=== PATIENT | male | born 1960 | race African-American/Black ===

== ENCOUNTER 2018-09-06 16:40 | Emergency (ER) | payer OTHER ==
[~2018-09-06] VITALS: Ht 167.6 cm; Wt 59.4 kg
[2018-09-06 16:47] VITALS: BP_SYST 114
--- NOTE | 2018-09-06 16:47 | NUR ---
Patient to [facility] for evaluation. Side rails up. Report given to MADISON Quinonez
--- NOTE | 2018-09-06 16:50 | NUR ---
Patient brought in via BLS transport from evaluation of mass to right lip. Patient has history for CRE, CVA with left hemiplegia. Patient arrives with baseline of AO x1. Pain 0/10. No other complaints/injuries per patient or as noted. Will continue to monitor.
--- NOTE | 2018-09-06 17:01 | NUR ---
ER at bedside examining patient.
--- NOTE | 2018-09-06 17:43 | NUR ---
Called report to Yesenia WALLACE at [facility]. Patient will be transported via BLS.
== END 2018-09-06 17:51 | disposition home or self-care (01) ==
LOC: SED 16:40
DX: K13.79 Other lesions of oral mucosa (principal)
CPT/HCPCS: 99283

== ENCOUNTER 2019-02-20 15:27 | Inpatient (IN) | payer OTHER, MEDICAID ==
[~2019-02-20] VITALS: Ht 182.9 cm; Wt 65.8 kg
--- NOTE | 2019-02-20 15:32 | NUR ---
Patient to ER bed 1 to gown for evaluation. Side rails up.
--- NOTE | 2019-02-20 15:35 | NUR ---
ER Dr. Concepcion at bedside examining patient.
[2019-02-20 15:40] VITALS: BP_SYST 139
--- NOTE | 2019-02-20 15:40 | NUR ---
Patient is awake and alert, visually tracks, and non-verbal. Patient was sent in by Christian Paulino s/p pulling g-tube out. Patient does not appear in any distress at this time.
[2019-02-20] MEDS ORDERED: CLINDAMYCIN 600 mg/50mL D5W 50 ML IV ONE (16:00)
[2019-02-20] MEDS ORDERED: cefTRIAXone 1 GM IVPB PREMIX 50 ML IV ONE (16:00)
[2019-02-20] MEDS ORDERED: NACL 0.9% 1,000 ML IV ONE (16:00)
--- NOTE | 2019-02-20 16:18 | NUR ---
Medication reconciliation completed with information provided by facility. Any prior medication reconciliation on file was reviewed and corrected.
[2019-02-20] MEDS ORDERED: AMLO5TAB4 GT (16:19)
[2019-02-20] MEDS ORDERED: HYDR-4272 PO (16:19)
[2019-02-20] MEDS ORDERED: BISA-79 GT (16:19)
[2019-02-20] MEDS ORDERED: LEVE1000 GT (16:19)
[2019-02-20] MEDS ORDERED: MOM PO (16:19)
[2019-02-20] MEDS ORDERED: HYDR-4272 GT (16:19)
[2019-02-20] MEDS ORDERED: THIA100T73 GT (16:19)
[2019-02-20] MEDS ORDERED: QUET50TA GT (16:19)
[2019-02-20] MEDS ORDERED: SENN8.6T19 GT (16:19)
[2019-02-20] MEDS ORDERED: FOLI-43 GT (16:19)
[2019-02-20] MEDS ORDERED: RIVA10TA GT (16:19)
[2019-02-20] MEDS ORDERED: FLEETMO RC (16:19)
[2019-02-20] MEDS ORDERED: IPRA3AMP9 INH ×2 (16:19)
[2019-02-20] MEDS ORDERED: PROP10TA10 GT (16:19)
[2019-02-20 16:41] LABS: BASOPHILS # (AUTO) 0.1 K/uL (0.0-0.2); BASOPHILS % (AUTO) 0.8 % (0.0-2.0); EOSINOPHILS # (AUTO) 0.2 K/uL (0.0-0.4); EOSINOPHILS % (AUTO) 2.3 % (0.0-4.0); HEMATOCRIT 36.1 % (36-54); LYMPHOCYTES # (AUTO) 2.3 K/uL (1.0-5.5); LYMPHOCYTES % (AUTO) 28.7 % (20.5-51.5); MEAN CORPUSCULAR HEMOGLOBIN 27 pg (27-31); MEAN CORPUSCULAR HGB CONC 33 % (32-36); MEAN CORPUSCULAR VOLUME 82 fL (79.0-98.0); MONOCYTES # (AUTO) 0.8 K/uL (0.0-1.0); MONOCYTES % (AUTO) 9.5 % (1.7-9.3); NEUTROPHILS # (AUTO) 4.8 K/uL (1.8-7.7); NEUTROPHILS % (AUTO) 58.7 % (40.0-70.0); PLATELET COUNT (AUTO) 317 K/uL (130-430); RED CELL DISTRIBUTION WIDTH 13.3 % (9.0-15.0); WHITE BLOOD COUNT (AUTO) 8.2 K/uL (4.8-10.8)
--- NOTE | 2019-02-20 16:43 | NUR ---
radiology at bedside.
[2019-02-20 16:50] LABS: CALCIUM 9.1 mg/dL (8.4-11.0); CREATININE 0.67 mg/dL (0.55-1.30); POTASSIUM 4.2 mmol/L (3.5-5.1)
[2019-02-20 16:54] LABS: ALBUMIN 3.4 g/dL (3.4-4.8); TOTAL BILIRUBIN 0.4 mg/dL (0.0-1.0)
[2019-02-20] MEDS: KCL 20 mEq in D5/0.45NS 1000mL 1,000 ML IV SCH (19:58)
--- NOTE | 2019-02-20 20:51 | NUR ---
Dr. Causey at bedside examining patient.
[2019-02-20] MEDS ORDERED: LevALBUTEROL HCL 1.25 MG/0.5 ML *CONC.* VIAL.NEB (XOPENEX CONC.) INH PRN (21:00)
[2019-02-20] MEDS ORDERED: LORazepam 2 MG/ML VIAL IVP PRN (21:15)
--- NOTE | 2019-02-20 21:20 | NUR ---
# 14 FR In and Out catheter with use of sterile technique. Immediate return of 100 ml Dark, Yellow urine noted. Urine sample collected and sent to lab. Pt tolerated procedure Well. Patient unable to toilet self.
--- NOTE | 2019-02-20 21:30 | NUR ---
Felicita yates in EDM - 02/20/19 at 2222 by [email or web address] Patient will be admitted to care of [facility]. Admitted to [facility] unit. Will go to room 128. Summary report printed. Report will be given at bedside.
[2019-02-20 21:31] LABS: BILIRUBIN,URINE NEGATIVE (NEGATIVE); CLARITY/URINE CLEAR (CLEAR); COLOR,URINE YELLOW (YELLOW); GLUCOSE,URINE NEGATIVE (NEGATIVE); KETONES,URINE NEGATIVE (NEGATIVE); LEUKOCYTE ESTERASE ,URINE NEGATIVE (NEGATIVE); NITRITE, URINE NEGATIVE (NEGATIVE); PROTEIN URINE NEGATIVE (NEGATIVE); UROBILINOGEN,URINE 0.2 (0.2-1.0)
[2019-02-20 21:35] LABS: BLOOD, URINE TRACE (NEGATIVE)
[2019-02-20 21:38] LABS: BACTERIA,URINE None Seen /HPF (None Seen); RBC,URINE 0-3 /HPF (0-3); WBC,URINE NONE SEEN /HPF (0-3)
[2019-02-20 21:39] LABS: MUCUS,URINE None Seen /LPF (None Seen)
[2019-02-20] MEDS: levETIRAcetam 1,000 MG in NS 100 ML IV SCH (21:41)
--- NOTE | 2019-02-20 22:11 | NUR ---
Patient will be admitted to [facility]. Admitted to Medical/Surgical unit. Will go to room 128. Belongings list completed. Summary report printed. Report will be given via telephone.
--- NOTE | 2019-02-20 23:04 | NUR ---
ADMISSION NOTE Received patient from ER via gurney. Patient admitted with diagnosis of Cellulitis of the abdomen. Patient is awake, non verbal. Patient oriented to hospital room, call light, toileting, pain management and safety-teach back done. Personal belongings checked and Belongings List documented. Call light within reach.
[2019-02-20] MEDS: LevALBUTEROL HCL 1.25 MG/0.5 ML *CONC.* VIAL.NEB (XOPENEX CONC.) INH SCH (23:18)
[2019-02-20 23:30] VITALS: BP_SYST 154
[2019-02-20] MEDS ORDERED: PIPERACILLIN/TAZOBACTAM 3.375 GM/VIAL (ZOSYN) IV ONE (23:41)
[2019-02-20] MEDS ORDERED: KCL 20 mEq in D5/0.45NS 1000mL 1,000 ML IV ONE (23:41)
[2019-02-20 23:53] VITALS: BP_SYST 137
--- NOTE | 2019-02-21 01:03 | NUR ---
Wound care: Wound care for abdominal wound performed. Photographs taken and placed in paper chart for MD to sign.
[2019-02-21] MEDS: PIPERACILLIN/TAZO 3.375/DEX-IS 50 ML IV SCH ×4 (01:20→17:39)
[2019-02-21 01:48] VITALS: BP_SYST 140
--- NOTE | 2019-02-21 04:04 | NUR ---
Rounds: Patient is resting, tolerating 2L NC. IV fluids infusing per MD order. Will continue to monitor.
[2019-02-21] MEDS: KCL 20 mEq in D5/0.45NS 1000mL 1,000 ML IV SCH ×2 (05:52→14:21)
[2019-02-21 06:21] LABS: BASOPHILS % (AUTO) 0.7 % (0.0-2.0); EOSINOPHILS # (AUTO) 0.2 K/uL (0.0-0.4); EOSINOPHILS % (AUTO) 2.8 % (0.0-4.0); HEMATOCRIT 35.8 % (36-54); LYMPHOCYTES # (AUTO) 2.6 K/uL (1.0-5.5); LYMPHOCYTES % (AUTO) 37.1 % (20.5-51.5); MEAN CORPUSCULAR HEMOGLOBIN 27 pg (27-31); MEAN CORPUSCULAR HGB CONC 34 % (32-36); MEAN CORPUSCULAR VOLUME 82 fL (79.0-98.0); MONOCYTES # (AUTO) 0.7 K/uL (0.0-1.0); MONOCYTES % (AUTO) 10.1 % (1.7-9.3); NEUTROPHILS # (AUTO) 3.4 K/uL (1.8-7.7); NEUTROPHILS % (AUTO) 49.3 % (40.0-70.0); PLATELET COUNT (AUTO) 312 K/uL (130-430); RED BLOOD CELL COUNT(AUTO) 4.38 MIL/uL (4.2-6.2); RED CELL DISTRIBUTION WIDTH 13.1 % (9.0-15.0)
[2019-02-21 06:53] LABS: ALBUMIN 3.6 g/dL (3.4-4.8); CALCIUM 9.5 mg/dL (8.4-11.0); CREATININE 0.62 mg/dL (0.55-1.30); POTASSIUM 3.7 mmol/L (3.5-5.1); TOTAL BILIRUBIN 0.5 mg/dL (0.0-1.0)
[2019-02-21 07:21] LABS: PROTHROMBIN TIME 10.5 SECS (9.5-12.5)
--- NOTE | 2019-02-21 07:27 | NUR ---
Closing note: Patient is resting in bed, no acute distress on 2L NC. IV fluids infusing per MD order. Patient's brother Sridhar Youngblood was called to obtain consent for scheduled PEG placement; however, brother wanted to speak to Dr. Mcfarland first. Dr. Mcfarland called and was informed that patient's brother wanted to speak with him, phone number provided. All needs met. Will endorse to bruna WALLACE.
--- NOTE | 2019-02-21 07:30 | NUR ---
OPENING NOTES: RECEIVED PATIENT FROM RETIREMENT ASSISTANT NURSE. PATIENT IS ASLEEP IN BED WITH NO SIGNS OF DISTRESS OR SHORTNESS OF BREATH NOTED. PATIENT IS TOLERATING OXYGEN ON 2 L NASAL CANNULA. IV SITES ARE BOTH PATENT WITH NO SIGNS OF INFILTRATION. PATIENT IN STABLE CONDITION. SAFETY, FALL, ASPIRATION, AND CONTACT PRECAUTIONS ARE IN PLACE. BED LOCKED IN LOWEST POSITION WITH CALL LIGHT IN REACH. WILL CONTINUE TO MONITOR PATIENT FOR ANY CHANGES.
[2019-02-21 08:00] VITALS: BP_SYST 151
[2019-02-21] MEDS: LevALBUTEROL HCL 1.25 MG/0.5 ML *CONC.* VIAL.NEB (XOPENEX CONC.) INH SCH ×3 (08:42→23:01)
--- NOTE | 2019-02-21 09:07 | NUR ---
Nutrition Update Juan Scale 12 noted. Pt admitted for cellulitis of abd wall. Diet: NPO BMI: 19.7 kg/m2 RD to follow per nutrition care standards.
--- NOTE | 2019-02-21 10:10 | NUR ---
RN ROUNDS: PATIENT IS AWAKE IN BED. PATIENT NONVERBAL AND ABLE TO FOLLOW WITH HIS EYES. NO SIGNS OF DISTRESS OR SHORTNESS OF BREATH NOTED. PATIENT IN STABLE CONDITION. WILL CONTINUE TO MONITOR PATIENT FOR ANY CHANGES.
[2019-02-21] MEDS: levETIRAcetam 1,000 MG in NS 100 ML IV SCH ×2 (10:57→21:03)
[2019-02-21] MEDS: PANTOPRAZOLE SODIUM 40 MG/VIAL (PROTONIX) IVP SCH (10:58)
--- NOTE | 2019-02-21 12:05 | NUR ---
RN ROUNDS: PATIENT IS AWAKE LAYING DOWN IN BED WITH HIS EYES OPEN. NO SIGNS OF DISTRESS OR SHORTNESS OF BREATH NOTED. PATIENT IN STABLE CONDITION. WILL CONTINUE TO MONITOR PATIENT FOR ANY CHANGES.
[2019-02-21 12:35] VITALS: BP_SYST 145
[2019-02-21] MEDS ORDERED: MEPERIDINE HCL/PF 100 MG/ML AMP ONE (13:51)
[2019-02-21] MEDS ORDERED: MIDAZOLAM HCL 5 MG/5 ML VIAL ONE (13:51)
[2019-02-21] MEDS ORDERED: SIMETHICONE 40 MG/0.6 ML ML ONE (13:52)
--- NOTE | 2019-02-21 14:15 | NUR ---
RN ROUNDS: PATIENT IS ASLEEP IN BED. NO SIGNS OF DISTRESS OR SHORTNESS OF BREATH NOTED. PATIENT IN STABLE CONDITION. WILL CONTINUE TO MONITOR PATIENT FOR ANY CHANGES.
--- NOTE | 2019-02-21 16:00 | NUR ---
RN ROUNDS: PATIENT TAKEN TO OPERATING ROOM FOR PEG PLACEMENT. IV FLUIDS WERE STOPPED AND DISCONNECTED. PATIENT ON OXYGEN 2 L NASAL CANNULA. VITALS SIGNS ARE BP: 156/99, RESPIRATIONS: 17, OXYGEN: 100%, PULSE: 77 AND TEMPERATURE 97.1. PATIENT IN STABLE CONDITION. WILL AWAIT FOR PATIENT'S ARRIVAL BACK TO THE FLOOR.
[2019-02-21] MEDS: MEPERIDINE HCL/PF 100 MG/ML AMP ONE ×2 (16:08→16:12)
[2019-02-21] MEDS: MIDAZOLAM HCL 5 MG/5 ML VIAL ONE ×2 (16:10→16:14)
[2019-02-21 16:15] VITALS: BP_SYST 156
[2019-02-21] MEDS ORDERED: DEXTROSE 50% JECT 50 ML DISP.SYRIN IVP PRN (16:45)
[2019-02-21] MEDS ORDERED: *TPN PER PHARMACY XX PRN (16:45)
[2019-02-21] MEDS ORDERED: INSULIN REGULAR, HUMAN 100 UNITS/ML, 10 ML VIAL (humuLIN R) SUBCUT PRN (16:45)
--- NOTE | 2019-02-21 17:00 | NUR ---
PATIENT RETURNED: PATIENT BROUGHT BACK FROM GETTING HIS PEG TUBE PLACED. PATIENT ASLEEP IN BED WITH NO SIGNS OF DISTRESS OR SHORTNESS OF BREATH NOTED. RECONNECTED PATIENT TO IV FLUIDS AND RUNNING WITH NO SIGNS OF INFILTRATION. PATIENT TOLERATING OXYGEN AT 2 L NASAL CANNULA. VITAL SIGNS: BP: 142/89, TEMP: 97.3, RESPIRATIONS: 17, PULSE: 61, OXYGEN: 90%. PATIENT IN STABLE CONDITION. WILL CONTINUE TO MONITOR PATIENT FOR ANY CHANGES.
--- NOTE | 2019-02-21 18:42 | NUR ---
CLOSING NOTES: PATIENT IS ASLEEP IN BED WITH NO SIGNS OF DISTRESS OR SHORTNESS OF BREATH NOTED. PATIENT IS TOLERATING OXYGEN ON 2 L NASAL CANNULA. IV SITES ARE BOTH PATENT WITH NO SIGNS OF INFILTRATION. PEG TUBE INTACT WITH ABDOMINAL BINDER. PATIENT IN STABLE CONDITION. SAFETY, FALL, ASPIRATION, AND CONTACT PRECAUTIONS REMAINED IN PLACE THROUGHOUT THE DAY. BED LOCKED IN LOWEST POSITION WITH CALL LIGHT IN REACH. WILL ENDORSE PATIENT CARE TO ONCOMING BUTCHER ALL ROUND NURSE.
[2019-02-21 20:00] VITALS: BP_SYST 154
--- NOTE | 2019-02-21 20:00 | NUR ---
ASSUMED CARE. RECEIVED AWAKE,NON-VERBAL. AFEBRILE, NOT IN ACUTE DISTRESS. NO PAIN OR DISCOMFORT NOTED. WITH IV FLUID D5 1/2 NS INFUSING AT 100 ML/HR VIA RIGHT UPPER ARM IV LINE. TPN ORDERED BUT NOT AVAILABLE OF THIS TIME. SALINE LOCK TO THE LEFT HAND INTACT. SDV8=041% ON 2 LPM O2 VIA NC. DRESSING TO THE NEWLY PLACED IN PEG TUBE CLEAN.DRY AND INTACT. CONTACT ISOLATION FOR CRE STOOL OBSERVED. VS STABLE, WILL CONTINUE TO MONITOR. NEEDS ATTENDED.
--- NOTE | 2019-02-21 21:03 | NUR ---
DUE MEDICATION GIVEN SCHEDULED.
[2019-02-22] VITALS: BP_SYST 147
[2019-02-22] MEDS: PIPERACILLIN/TAZO 3.375/DEX-IS 50 ML IV SCH ×4 (00:13→18:19)
--- NOTE | 2019-02-22 00:13 | NUR ---
AWAKE, NOT IN ANY KIND OF DISTRESS. NO PAIN OR DISCOMFORT NOTED. DUE IV ANTIBIOTIC ADMINISTERED. BCP6=062% ON RA. O2 THERAPY TURNED OFF FOR NOW. SIDE RAILS UP, CALL LIGHT WITHIN REACH. KEPT WARM AND COMFORTABLE. VS REMAIN STABLE.
[2019-02-22] MEDS: KCL 20 mEq in D5/0.45NS 1000mL 1,000 ML IV SCH ×3 (03:45→21:13)
--- NOTE | 2019-02-22 04:00 | NUR ---
ASLEEP, NOT IN ANY KIND OF DISTRESS. CONDITION UNCHANGED AND PT.REMAINS PAIN FREE.
--- NOTE | 2019-02-22 06:00 | NUR ---
AWAKE. DUE IV ANTIBIOTIC ADMINISTERED SCHEDULED.
[2019-02-22 06:54] LABS: ALBUMIN 3.3 g/dL (3.4-4.8); CALCIUM 9.4 mg/dL (8.4-11.0); CREATININE 0.63 mg/dL (0.55-1.30); PHOSPHORUS 3.6 mg/dL (2.7-4.5); POTASSIUM 4.3 mmol/L (3.5-5.1); TOTAL BILIRUBIN 0.7 mg/dL (0.0-1.0)
--- NOTE | 2019-02-22 06:58 | NUR ---
ENDORSED CARE TO KATHI QUINTANILLA.
--- NOTE | 2019-02-22 07:20 | NUR ---
OPENING NOTES: RECEIVED PATIENT FROM RECEIVING TEAM MEMBER NURSE. PATIENT IS AWAKE AND TRACKS WITH HIS EYES BUT NONVERBAL. RECEIVING TEAM MEMBER NURSE TOOK OFF OXYGEN LAST NIGHT. PATIENT IS TOLERATING OXYGEN AT ROOM AIR SATING AT 98%. NO SIGNS OF DISTRESS OR SHORTNESS OF BREATH NOTED. G-TUBE INTACT WITH CLEAN, DRY DRESSING AND AN ABDOMINAL BINDER IN PLACE. IV SITES ARE PATENT AND RUNNING FLUIDS ORDERED WITH NO SIGNS OF INFILTRATION. PATIENT IN STABLE CONDITION. SAFETY, FALL, ASPIRATION, SEIZURE, AND CONTACT PRECAUTIONS ARE IN PLACE. BED LOCKED IN LOWEST POSITION WITH CALL LIGHT IN REACH. WILL CONTINUE TO MONITOR PATIENT FOR ANY CHANGES.
[2019-02-22 08:03] VITALS: BP_SYST 158
[2019-02-22] MEDS: LevALBUTEROL HCL 1.25 MG/0.5 ML *CONC.* VIAL.NEB (XOPENEX CONC.) INH SCH ×3 (08:16→23:10)
--- NOTE | 2019-02-22 10:05 | NUR ---
RN ROUNDS: PATIENT IS AWAKE WITH EYES OPEN BUT NONVERBAL. NO SIGNS OF DISTRESS OR SHORTNESS OF BREATH NOTED. PATIENT TOLERATING OXYGEN AT ROOM AIR. PATIENT IN STABLE CONDITION. WILL CONTINUE TO MONITOR PATIENT FOR ANY CHANGES.
[2019-02-22] MEDS: levETIRAcetam 1,000 MG in NS 100 ML IV SCH ×2 (10:23→20:52)
[2019-02-22] MEDS: PANTOPRAZOLE SODIUM 40 MG/VIAL (PROTONIX) IVP SCH (10:24)
--- NOTE | 2019-02-22 12:15 | NUR ---
RN ROUNDS: PATIENT IS ASLEEP IN BED. NO SIGNS OF DISTRESS OR SHORTNESS OF BREATH NOTED. PATIENT'S IV SITES ARE PATENT AND RUNNING FLUIDS ORDERED. PATIENT TOLERATING OXYGEN AT ROOM AIR. PATIENT IN STABLE CONDITION. WILL CONTINUE TO MONITOR PATIENT FOR ANY CHANGES.
[2019-02-22 12:35] VITALS: BP_SYST 145
--- NOTE | 2019-02-22 14:37 | NUR ---
RN ROUNDS: PATIENT IS ASLEEP IN BED. NO SIGNS OF DISTRESS OR SHORTNESS OF BREATH NOTED. PATIENT IS TOLERATING OXYGEN AT ROOM AIR. NO SIGNS OF DISTRESS OR SHORTNESS OF BREATH NOTED. PATIENT IN STABLE CONDITION. WILL CONTINUE TO MONITOR PATIENT FOR ANY CHANGES.
--- NOTE | 2019-02-22 16:10 | NUR ---
RN ROUNDS/WOUND CONSULT: PATIENT IS AWAKE WITH HIS EYES OPEN LAYING DOWN IN BED. WOUND CARE NURSE KAN EXAMINING PATIENT'S WOUND. NO SIGNS OF DISTRESS OR SHORTNESS OF BREATH NOTED. IV SITE IS PATENT AND RUNNING FLUIDS ORDERED. PATIENT IS TOLERATING OXYGEN AT ROOM AIR. PATIENT IN STABLE CONDITION. WILL CONTINUE TO MONITOR PATIENT FOR ANY CHANGES.
[2019-02-22 16:15] VITALS: BP_SYST 146
--- NOTE | 2019-02-22 16:18 | NUR ---
WOUND EVALUATION: Wound Consult received from Dr. Causey. Thank you, Dr. Causey, for the consult. Patient received in a [place] Bed with an IsoFlex ETHEL mattress with low air-loss therapy initiated, awake, alert, non-verbal. Patient is unable to turn in bed independently. Juan Score is a 12. Past Medical History: Traumatic Brain Injury, Seizure Disorder, Hypertension, prior G-tube placement. Recent Labs: WBC 7.0, RBC 4.38, hemoglobin 12.0, hematocrit 35.8, glucose 127, albumin 3.3. Microbiology: Blood culture results 2 in progress. MRSA screen results negative. Urine culture results negative. Intrinsic factors that delay wound healing: Hypoalbuminemia. Extrinsic factors that delay wound healing: Decreased mobility. Patient is status post EGD with G-tube insertion by Dr. Durant on 02/21/19. New G-tube site is being held from use for one week to allow old G-Tube site to heal. Wound Assessment: 1. Left Mid Abdomen: Former G-Tube site that patient accidentally dislodged, present on admission. Open area has 100% pink tissue. No odor, scant sanguineous drainage. Terry-wound intact. Small flap of probable stomal tissue present with 90% pink tissue, 10% black tissue. Open area measures 0.3 cm x 1.3 cm x 1.9 cm. Surrounding tissue has induration. Recommend: Cleanse wound with normal saline. Apply moisture barrier cream to terry-wound. Apply Hydrogel to open area and residual stomal tissue. Cover with foam dressing. Perform wound care daily, and as needed for dressing soiling or dislodgement. Also recommend: Reposition patient every 2 hours with pillow support and off-load pressure areas with pillows for pressure re-distribution. Offload, elevate and float bilateral heels with pillows. Perform skin care and monitor skin integrity Q shift. Use moisture barrier cream on buttocks and other moisture susceptible areas QID and as needed for soiling. Maintain patient on a low air-loss mattress.
--- NOTE | 2019-02-22 17:04 | NUR ---
Dietitian Recommendations * Continue TPN nutrition support order of D20% AA8.5% at 40mL/hr, IL20% at 10 mL/hr. -Provides: 969 kcal/day, 41 gm of protein/day, 1200 ml total volume/day, and GIR: 1 gm CHO/kg/min. -Meets: 40% of lower estimated caloric needs and 42% of lower estimated protein needs. * Recommend GI consult * Recommend increasing TPN D20%, AA8.5% at 70mL/day and IL20% at 10mL/hr -Provides: 1337 kcal/day, 71 gm of protein/day, 1920 ml total volume/day, and 1.8 gm CHO/kg/min. -Meets: 55% of lower estimated caloric needs and 73% of lower estimated protein needs. Please refer to Nutrition Assessment for details. Signed: 02/22/19 at 1705 by Rhea LIRA <Co-Signature Required> Co-Signed: 02/22/19 at [address] Addendum: 02/22/19 at 1706 by Rhea LIRA Amended: Links added.
--- NOTE | 2019-02-22 18:45 | NUR ---
CLOSING NOTES: PATIENT IS AWAKE AND TRACKS WITH HIS EYES BUT NONVERBAL. PATIENT IS TOLERATING OXYGEN AT ROOM AIR SATING AT 98%. NO SIGNS OF DISTRESS OR SHORTNESS OF BREATH NOTED. G-TUBE INTACT WITH CLEAN, DRY DRESSING AND AN ABDOMINAL BINDER IN PLACE. IV SITES ARE PATENT AND RUNNING FLUIDS ORDERED WITH NO SIGNS OF INFILTRATION. PATIENT IN STABLE CONDITION. SAFETY, FALL, ASPIRATION, SEIZURE, AND CONTACT PRECAUTIONS REMAINED IN PLACE THROUGHOUT THE SHIFT. BED LOCKED IN LOWEST POSITION WITH CALL LIGHT IN REACH. WILL ENDORSE PATIENT CARE TO ONCOMING BROACH TROUBLE SHOOTER NURSE.
[2019-02-22 20:00] VITALS: BP_SYST 132
--- NOTE | 2019-02-22 20:00 | NUR ---
ASSUMED CARE. RECEIVED AWAKE,ALERT, NON-VERBAL. AFEBRILE, NOT IN ACUTE DISTRESS. NO PAIN OR DISCOMFORT NOTED. WITH IV FLUID D5 1/2 NS INFUSING AT 100 ML/HR VIA RIGHT UPPER ARM IV LINE. TPN/LIPIDS READY AND TO BE STARTED AT 2100. SALINE LOCK TO THE LEFT HAND NOTED TO BE OCCLUDED AND NON-FUNCTIONING. WILL ESTABLISH NEW IV LINE. SAO2=99% ON ROOM AIR. ABDOMINAL BINDER AND DRESSING TO THE NEWLY PLACED IN PEG TUBE CLEAN,DRY AND INTACT. CONTACT ISOLATION FOR CRE STOOL OBSERVED. VS STABLE, WILL CONTINUE TO MONITOR. NEEDS ATTENDED.
[2019-02-22] MEDS ORDERED: POTASSIUM CHLORIDE IV SCH ×8 (21:00)
[2019-02-22] MEDS ORDERED: [UNRECOGNIZED DRUG - OTHER] IV SCH ×8 (21:00)
[2019-02-22] MEDS ORDERED: TPN PERIPHERAL IV SCH ×8 (21:00)
[2019-02-22] MEDS ORDERED: SODIUM CHLORIDE IV SCH ×8 (21:00)
--- NOTE | 2019-02-22 21:05 | NUR ---
GAUGE 20 IV LINE ESTABLISHED TO THE LEFT WRIST. OLD IV LINE DISCONTINUED.
[2019-02-22] MEDS: FAT EMULSIONS 250 ML IV SCH (21:14)
--- NOTE | 2019-02-22 21:14 | NUR ---
TPN AND LIPIDS STARTED AT 40 ML/HR AND 10 ML/HR RESPECTIVELY. IV FLUID D5 1/2 NS + KCL 20 MEQ DECREASED TO 60 ML/HR ORDERED.
[2019-02-23] VITALS: BP_SYST 147
--- NOTE | 2019-02-23 | NUR ---
AWAKE, NOT IN ANY KIND OF DISTRESS. NO PAIN OR DISCOMFORT NOTED. DUE IV ANTIBIOTIC ADMINISTERED SCHEDULED. SIDE RAILS UP,CALL LIGHT WITHIN REACH. KEPT WARM AND COMFORTABLE. VS REMAIN STABLE. WILL CONTINUE TO MONITOR.
--- NOTE | 2019-02-23 04:00 | NUR ---
AWAKE, NOT IN ANY KIND OF DISTRESS. NO CHANGE IN CONDITION. PT.REMAINS STABLE AND PAIN FREE. WILL CONTINUE TO MONITOR.
[2019-02-23] MEDS: PIPERACILLIN/TAZO 3.375/DEX-IS 50 ML IV SCH ×4 (06:01→17:20)
--- NOTE | 2019-02-23 07:10 | NUR ---
ENDORSED CARE TO DION QUINTANILLA.
[2019-02-23] MEDS: LevALBUTEROL HCL 1.25 MG/0.5 ML *CONC.* VIAL.NEB (XOPENEX CONC.) INH SCH ×3 (07:22→23:13)
[2019-02-23 07:35] LABS: ALBUMIN 3.5 g/dL (3.4-4.8); CALCIUM 8.8 mg/dL (8.4-11.0); CREATININE 0.85 mg/dL (0.55-1.30); PHOSPHORUS 3.5 mg/dL (2.7-4.5); POTASSIUM 3.9 mmol/L (3.5-5.1); TOTAL BILIRUBIN 0.4 mg/dL (0.0-1.0)
--- NOTE | 2019-02-23 07:45 | NUR ---
opening note patient is resting bed, no signs of distress at this this time, eyes closed breathing easy and nonlabored, educated front clerk light system and plan of care, did not get a verbal response, TPN running at 40ml/hr and lipids 10ml/hr and IV fluids running, patient tolerating well, g tube in place, no other needs at this time, fall/safety and seizure precautions in place.
[2019-02-23 08:00] VITALS: BP_SYST 155
--- NOTE | 2019-02-23 09:45 | NUR ---
rounds patient is resting in bed, no signs of distress at this time, no needs addressed at this time, fall/safety and contact precautions in place, IV fluids running.
[2019-02-23] MEDS: PANTOPRAZOLE SODIUM 40 MG/VIAL (PROTONIX) IVP SCH (10:17)
[2019-02-23] MEDS: levETIRAcetam 1,000 MG in NS 100 ML IV SCH ×2 (10:17→21:39)
[2019-02-23 10:35] VITALS: BP_SYST 140
[2019-02-23] MEDS: KCL 20 mEq in D5/0.45NS 1000mL 1,000 ML IV SCH (11:54)
--- NOTE | 2019-02-23 11:54 | NUR ---
barbie patient resting in bed, educated on medication use and side effects, no other needs at this time, fall/safety and contact precautions in place.
[2019-02-23 12:00] VITALS: BP_SYST 143
--- NOTE | 2019-02-23 13:18 | NUR ---
rounds patient is resting in bed, eyes opening, nonverbal, no signs of distress at this time, no needs addressed at this time, fall/safety with seizure and contact precautions in place.
--- NOTE | 2019-02-23 15:25 | NUR ---
rounds patient is resting in bed, eyes opening, nonverbal, no signs of distress at this time, patient receiving breathing treatment, no needs addressed at this time, fall/safety with seizure and contact precautions in place.
[2019-02-23 16:00] VITALS: BP_SYST 128
--- NOTE | 2019-02-23 16:30 | NUR ---
wound care patient resting in bed site where old g-tube was, open area has 100% pink tissue, no odor, scant sanguineous drainage, periwound intact, small stomal tissue is 95% pink with 5% black. measures 2.0 x 1.5cm. rinsed with normal saline, moisture barrier cream to periwound, hydrogel to stomal tissure and open area, covered with foam dressing.
--- NOTE | 2019-02-23 18:45 | NUR ---
closing note patient is resting bed, no signs of distress at this this time, eyes closed breathing easy and nonlabored, TPN running at 40ml/hr and lipids 10ml/hr and IV fluids running, patient tolerating well, g tube in place, no other needs at this time, fall/safety and seizure precautions in place, will endorse to maintenance supervisor 2nd shift nurse to continue with care, no medications or tube feeding yet, patient has an order for PICC line since he will be on TPN and lipids for now, need to call family for consent for it.
[2019-02-23 19:18] LABS: INR 1.1 (0.80-1.20); PROTHROMBIN TIME 10.9 SECS (9.5-12.5)
[2019-02-23 20:00] VITALS: BP_SYST 160
[2019-02-23] MEDS ORDERED: TPN PERIPHERAL 0.0001 ML, SODIUM CHLORIDE 40 MEQ, POTASSIUM CHLORIDE 20 MEQ, K PHOS 6 M... IV SCH ×9 (21:00)
[2019-02-23] MEDS: FAT EMULSIONS 250 ML IV SCH (21:26)
[2019-02-24 01:27] VITALS: BP_SYST 161
[2019-02-24] MEDS: KCL 20 mEq in D5/0.45NS 1000mL 1,000 ML IV SCH (02:43)
[2019-02-24] MEDS: LevALBUTEROL HCL 1.25 MG/0.5 ML *CONC.* VIAL.NEB (XOPENEX CONC.) INH SCH ×3 (07:24→23:30)
--- NOTE | 2019-02-24 07:40 | NUR ---
opening note patient is resting bed, no signs of distress at this this time, eyes opened breathing easy and nonlabored, educated customer contact specialist light system and plan of care, did not get a verbal response, TPN running at 50ml/hr and lipids 10ml/hr and IV fluids running, patient tolerating well, g tube in place, no other needs at this time, fall/safety and seizure and contact precautions in place.
[2019-02-24 08:00] VITALS: BP_SYST 148
[2019-02-24] MEDS: levETIRAcetam 1,000 MG in NS 100 ML IV SCH (09:31)
[2019-02-24] MEDS: PANTOPRAZOLE SODIUM 40 MG/VIAL (PROTONIX) IVP SCH (09:31)
[2019-02-24] MEDS: PIPERACILLIN/TAZO 3.375/DEX-IS 50 ML IV SCH ×4 (09:31→17:22)
--- NOTE | 2019-02-24 09:40 | NUR ---
MEDICATIONS patient is resting in bed, DRIER TRANSFER CAR OPERATOR cleaned patient, educated on medication uses and side effects, patient is nonverbal, medications hung and given, patient tolerating well, no other needs at this time, fall/safety, seizure, and contact precautions in place, Still trying to get ahold of the patient's brother to get consent for PICC line.
[2019-02-24 10:26] LABS: CALCIUM 9.8 mg/dL (8.4-11.0); CREATININE 0.72 mg/dL (0.55-1.30); PHOSPHORUS 3.9 mg/dL (2.7-4.5); POTASSIUM 3.6 mmol/L (3.5-5.1)
--- NOTE | 2019-02-24 11:55 | NUR ---
barbie patient resting in bed, educated on medication use and side effects, no other needs at this time, fall/safety and contact precautions in place.
[2019-02-24 13:13] VITALS: BP_SYST 159
--- NOTE | 2019-02-24 16:45 | NUR ---
PICC LINE PICC line placement done, confirmed by chest x-ray, patient tolerated well.
[2019-02-24 17:18] VITALS: BP_SYST 125
--- NOTE | 2019-02-24 18:38 | NUR ---
closing note patient is resting bed, no signs of distress at this this time, eyes closed breathing easy and nonlabored, TPN running at 50ml/hr and lipids 10ml/hr and IV fluids running, patient tolerating well, g tube in place, no other needs at this time, fall/safety and seizure precautions in place, will endorse to foster winder nurse to continue with care, no medications or tube feeding yet, patient has a right upper arm PICC line now that can be used.
[2019-02-24 20:00] VITALS: BP_SYST 143
[2019-02-24] MEDS ORDERED: [UNRECOGNIZED DRUG - OTHER] IV SCH ×9 (21:00)
[2019-02-24] MEDS ORDERED: POTASSIUM CHLORIDE IV SCH ×9 (21:00)
[2019-02-24] MEDS ORDERED: SODIUM CHLORIDE IV SCH ×9 (21:00)
[2019-02-24] MEDS ORDERED: TPN PERIPHERAL IV SCH ×9 (21:00)
[2019-02-25 02:21] VITALS: BP_SYST 137
--- NOTE | 2019-02-25 03:11 | NUR ---
Rounds: Patient is resting in bed, does not show any acute distress on room air. IV fluids, TPN, and lipids infusing as ordered. Call light is with patient. Will continue monitoring. Addendum: 02/26/19 at 0632 by Lionel Olson RN Correction: please disregard, wrong date
[2019-02-25] MEDS: LevALBUTEROL HCL 1.25 MG/0.5 ML *CONC.* VIAL.NEB (XOPENEX CONC.) INH SCH ×3 (07:12→23:17)
--- NOTE | 2019-02-25 07:30 | NUR ---
INITIAL NOTE BEDSIDE SBAR REPORT RECEIVED BY COUNTER SALES PERSON RN. PT AWAKE, TRACKING VOICE, PT NON VERBAL. NO ACUTE DISTRESS NOTED. PT RECEIVING BREATHING TREATMENT. TOLERATING WELL. IVF INFUSING WELL. CALL LIGHT WITHIN REACH, BED IN LOW AND LOCKED POSITION WITH BED ALARM ON. ISOLATION PRECAUTIONS IN PLACE.
[2019-02-25 07:43] LABS: CALCIUM 9.1 mg/dL (8.4-11.0); CREATININE 0.77 mg/dL (0.55-1.30); PHOSPHORUS 3.9 mg/dL (2.7-4.5); POTASSIUM 4.1 mmol/L (3.5-5.1)
[2019-02-25 08:00] VITALS: BP_SYST 141
[2019-02-25] MEDS: levETIRAcetam 1,000 MG in NS 100 ML IV SCH ×2 (08:26→21:50)
[2019-02-25] MEDS: PANTOPRAZOLE SODIUM 40 MG/VIAL (PROTONIX) IVP SCH (08:26)
--- NOTE | 2019-02-25 09:30 | NUR ---
RN ROUNDS PT AWAKE, TRACKING WITH EYES, REMAINS NON VERBAL. NO ACUTE DISTRESS NOTED, WILL CONTINUE TO MONITOR.
[2019-02-25] MEDS: PIPERACILLIN/TAZO 3.375/DEX-IS 50 ML IV SCH ×2 (11:14→16:34)
--- NOTE | 2019-02-25 11:20 | NUR ---
INCONTINENT PT INCONTINENT OF BLADDER. CHANGED PT AND LINEN. PT TOLERATED WELL. WILL CONTINUE TO MONITOR.
[2019-02-25 12:00] VITALS: BP_SYST 158
[2019-02-25] MEDS: KCL 20 mEq in D5/0.45NS 1000mL 1,000 ML IV SCH ×2 (13:17→21:51)
--- NOTE | 2019-02-25 13:30 | NUR ---
WOUND CARE WOUND CARE DONE. PT TOLERATED WELL. NO ACUTE DISTRESS NOTED DURING OR AFTER. REFER TO [facility]ST FOR TREATMENT.
--- NOTE | 2019-02-25 15:30 | NUR ---
RN ROUNDS PT RESTING, NO ACUTE DISTRESS NOTED, BREATHING EVEN AND UNLABORED.
[2019-02-25 16:54] VITALS: BP_SYST 127
--- NOTE | 2019-02-25 17:24 | NUR ---
Nutrition F/U (short note d/t high patient load) RD reviewed pt's current EMR including diet Hx, physician notes, nursing notes, pertinent labs/meds/procedures, care trends, and care activity. Pt seen resting in bed PPN support infusing as per physician/pharmacy orders. Pt is not yet meeting optimal nutritional need as current regimen provides 1215 kcal/day, 61 gm protein/day, 1680 total volume/day, and GIR: 1.5 gm CHO/kg/min, which meets 50% of lower end of estimated caloric needs and 63% of lower end of estimated protein needs. RD recommendation for TPN D40%, AA10% at 75 ml/hr, IL20% at 10 ml/hr daily via central line; provides 2064 kcal/day, 90 gm protein/day, 2040 total volume/day, and GIR: 3.7 gm CHO/kg/min, which meets 85% of lower end of estimated caloric needs and 92% of lower end of estimated protein needs.
--- NOTE | 2019-02-25 17:30 | NUR ---
INCONTINENT INCONTINENT OF URINE, CLEANED AND CHANGED PT. REPOSITIONED FOR COMFORT. PT TOLERATED WELL.
[2019-02-25 17:45] VITALS: BP_SYST 151
--- NOTE | 2019-02-25 17:45 | NUR ---
INITIAL NOTE RECEIVED PT VIA BECCARANTONINO ACCOMPANIED BY ICU NURSE. PT ON 4L NASAL CANNULA, TOLERATING WELL, SATURATING AT 100%. HERNANDEZ DRAINING TO GRAVITY. IVF INFUSING WELL. PT DENIES ANY PAIN OR DISCOMFORT. CALL LIGHT WITHIN REACH, BED IN LOW AND LOCKED POSITION WITH BED ALARM ON.
--- NOTE | 2019-02-25 19:30 | NUR ---
CLOSING NOTE BEDSIDE SBAR REPORT GIVEN TO RECEIVING SOCIAL PSYCHOLOGIST RN. PT RESTING, NO ACUTE DISTRESS NOTED, BREATHING EVEN AND UNLABORED. PT ON 4L NASAL CANNULA TOLERATING WELL. IVF INFUSING WELL. CALL LIGHT WITHIN REACH, BED IN LOW AND LOCKED POSITION WITH BED ALARM ON. PT CARE ENDORSED TO SOCIAL PSYCHOLOGIST RN.
--- NOTE | 2019-02-25 19:44 | NUR ---
CLOSING NOTE BEDSIDE SBAR REPORT GIVEN TO FITNESS SALES CONSULTANT RN. NO ACUTE DISTRESS NOTED, BREATHING EVEN AND UNLABORED, PT RESTING. IVF INFUSING WELL. ISOLATION PRECAUTIONS IN PLACE. CALL LIGHT WITHIN REACH, BED IN LOW AND LOCKED POSITION WITH BED ALARM ON. PT CARE ENDORSED TO FITNESS SALES CONSULTANT RN.
--- NOTE | 2019-02-25 19:53 | NUR ---
Initial note: Received report from bruna RN. Patient is awake in bed, no acute distress noted. Even, unlabored breathing on room air. TPN and lipids infusing per MD order to CAPRI PICC line, IV fluids infusing to CAPRI IV site, no infiltration noted. Call light with patient. Safety, fall, seizure, contact iso precautions in place. Will continue with plan of care.
[2019-02-25 20:00] VITALS: BP_SYST 156
[2019-02-25] MEDS ORDERED: [UNRECOGNIZED DRUG - OTHER] IV SCH ×10 (21:00)
[2019-02-25] MEDS ORDERED: POTASSIUM CHLORIDE IV SCH ×10 (21:00)
[2019-02-25] MEDS ORDERED: SODIUM CHLORIDE IV SCH ×10 (21:00)
[2019-02-25] MEDS ORDERED: TPN PERIPHERAL IV SCH ×10 (21:00)
[2019-02-25] MEDS: FAT EMULSIONS 250 ML IV SCH (21:53)
[2019-02-26 00:42] VITALS: BP_SYST 160
--- NOTE | 2019-02-26 00:43 | NUR ---
Rounds: Patient is awake, no acute distress. Tolerating room air. IV fluids, TPN and lipids infusing well. Call light is with patient. Will continue to monitor.
[2019-02-26] MEDS: PIPERACILLIN/TAZO 3.375/DEX-IS 50 ML IV SCH ×4 (01:00→17:23)
--- NOTE | 2019-02-26 03:11 | NUR ---
Rounds: Patient is resting in bed, does not show any acute distress on room air. IV fluids, TPN, and lipids infusing as ordered. Call light is with patient. Will continue monitoring.
--- NOTE | 2019-02-26 06:30 | NUR ---
Closing note: Patient is resting in bed, no acute distress. Tolerating room air. IV fluids, TPN, and lipids infusing well. All needs met. Hourly rounding performed throughout shift. Safety, fall, seizure, contact iso precautions maintained. Call light with patient. Will endorse care to dayshift RN.
[2019-02-26 07:06] LABS: ALBUMIN 3.4 g/dL (3.4-4.8); CALCIUM 9.2 mg/dL (8.4-11.0); CREATININE 0.68 mg/dL (0.55-1.30); PHOSPHORUS 3.5 mg/dL (2.7-4.5); POTASSIUM 3.7 mmol/L (3.5-5.1); TOTAL BILIRUBIN 0.4 mg/dL (0.0-1.0)
[2019-02-26] MEDS: LevALBUTEROL HCL 1.25 MG/0.5 ML *CONC.* VIAL.NEB (XOPENEX CONC.) INH SCH ×3 (07:37→23:10)
--- NOTE | 2019-02-26 07:58 | NUR ---
Initial notes- Pt in bed, awake, non verbal. Repositioned for comfort. TPN/ LIPIDS and IVF infusing well. Has incontinent of urine. Cleaned and repositioned. SAFETY PRECAUTION OBSERVED. Call light in reach. Bed alarm. will monitor.
[2019-02-26 08:00] VITALS: BP_SYST 147
--- NOTE | 2019-02-26 09:00 | NUR ---
Removed iv on the left arm, pt already has picc line double lumen.
[2019-02-26] MEDS: PANTOPRAZOLE SODIUM 40 MG/VIAL (PROTONIX) IVP SCH (10:23)
[2019-02-26] MEDS: levETIRAcetam 1,000 MG in NS 100 ML IV SCH ×2 (10:23→22:08)
--- NOTE | 2019-02-26 10:26 | NUR ---
Turned and repositioned. No acute distress noted.
[2019-02-26 12:07] VITALS: BP_SYST 134
--- NOTE | 2019-02-26 15:34 | NUR ---
Has incontinent of urine, changed and repositioned. No acute distress noted.
[2019-02-26 17:17] VITALS: BP_SYST 148
--- NOTE | 2019-02-26 18:16 | NUR ---
Notes- Resting, no acute distress noted. Unable to start feeding , No available feeding pump at this time. no change in assessment. will endorse.
--- NOTE | 2019-02-26 19:30 | NUR ---
CHANGE OF SHIFT; pt. resting, calm when received. on contact isolation with history of some infection. pt. non verbal. no acute distress. will assess later. call light at bedside.
--- NOTE | 2019-02-26 20:15 | NUR ---
NOTES: pt. non verbal. gets restless, =rt. mckenna weakness but able to move left arm, able to sit up. pt. gets stiff and resist when turning. IV TPN/LIPIDS infusing via PICC line on rt. upper arm, another IV infusing with KCL on the other port. S/P g tube replacement, intact and abdominal binder, unable to start feeding, unavailable feeding pump at this time as endorsed by day shift, charge nurse Ezequiel hardy. sequentials on. on bed alarm, risk for fall.
[2019-02-26 20:30] VITALS: BP_SYST 145
[2019-02-26] MEDS ORDERED: TPN PERIPHERAL IV SCH ×10 (21:00)
[2019-02-26] MEDS ORDERED: [UNRECOGNIZED DRUG - OTHER] IV SCH ×10 (21:00)
[2019-02-26] MEDS ORDERED: SODIUM CHLORIDE IV SCH ×10 (21:00)
[2019-02-26] MEDS ORDERED: POTASSIUM CHLORIDE IV SCH ×10 (21:00)
--- NOTE | 2019-02-26 21:00 | NUR ---
NOTES: pt. incontinent of urine, terry care done with MANGANESE WHEELER and kept dry, repositioned.
[2019-02-26] MEDS: FAT EMULSIONS 250 ML IV SCH (21:02)
[2019-02-26] MEDS ORDERED: KCL 20 mEq in D5/0.45NS 1000mL 1,000 ML IV ONE (21:29)
[2019-02-26] MEDS: KCL 20 mEq in D5/0.45NS 1000mL 1,000 ML IV SCH (22:08)
--- NOTE | 2019-02-26 22:30 | NUR ---
NOTES: pt. checked and sleeping. condition observed.
[2019-02-26 23:36] VITALS: BP_SYST 133
[2019-02-27] MEDS: PIPERACILLIN/TAZO 3.375/DEX-IS 50 ML IV SCH ×2 (00:29→05:37)
--- NOTE | 2019-02-27 00:30 | NUR ---
NOTES: continue to monitor. pt. asleep when made rounds.
--- NOTE | 2019-02-27 02:00 | NUR ---
NOTES: pt. turn to sides and repositioned. pt. asleep.
--- NOTE | 2019-02-27 04:30 | NUR ---
NOTES: condition unchanged. no acute distress. pt. sleeping when checked. IVF infusing well. bed in low position. observed contact isolation, history but unknown source.
--- NOTE | 2019-02-27 05:30 | NUR ---
NOTES: complete am care, incontinent of urine. terry care done with LOKIE ENGINEER. dressing around g tube changed and previous g tube site, cleanse with warm water/pat dry and applied hydrogel, healing with some scabs around, dry dressing after and secure with abdominal binder, still unable to start feeding, no available feeding pump. still looking for a pump, went all over the unit East and West, charge nurse Dharmesh made aware as well.
--- NOTE | 2019-02-27 06:37 | NUR ---
CLOSING NOTES; pt. condition remain the same. need further care, assistance and observation. TPN/Lipids continuously infusing via PICC line on rt. upper arm @ same rate. on room air. non verbal, try to resist with strong left arm. slightly contracture on lower extremities. contact isolation observed. call light at bedside. risk for fall, padded siderails for seizure precautions. will endorse to day shift.
[2019-02-27 07:21] LABS: ALBUMIN 3.5 g/dL (3.4-4.8); CALCIUM 9.6 mg/dL (8.4-11.0); CREATININE 0.69 mg/dL (0.55-1.30); PHOSPHORUS 3.5 mg/dL (2.7-4.5); TOTAL BILIRUBIN 0.4 mg/dL (0.0-1.0)
[2019-02-27] MEDS: LevALBUTEROL HCL 1.25 MG/0.5 ML *CONC.* VIAL.NEB (XOPENEX CONC.) INH SCH ×3 (07:28→23:18)
--- NOTE | 2019-02-27 08:00 | NUR ---
Note Pt resting in bed with isolation precautions. No SOB/resp distress or pain/discomfort noted at this time. Pt receiving TPN/Lipids and IVF's through CPARI PICC. Pt's GT feedings held. Dr Durant aware of GT feedings being held at this time. No needs noted. Call light within reach. Pt next to nurses' station for close observation for needs and care. Dr Durant on the floor doing assessment of pt at bedside.
[2019-02-27 08:01] VITALS: BP_SYST 135
[2019-02-27] MEDS: levETIRAcetam 1,000 MG in NS 100 ML IV SCH ×2 (08:48→20:01)
[2019-02-27] MEDS: PANTOPRAZOLE SODIUM 40 MG/VIAL (PROTONIX) IVP SCH (08:48)
--- NOTE | 2019-02-27 10:56 | NUR ---
Nutrition F/U RD reviewed pt's current EMR including diet Hx, physician notes, nursing notes, pertinent labs/meds/procedures, care trends and care activity. Current Nutrition Support: TPN D20% AA8.5% at 78ml/hr, IL20% at 10ml/hr via peripheral line Jevity 1.5 at 50ml/hr (goal rate), FWF 100ml Q6H via GT Subjective information: Pt w/ 2 active diet orders. Per RN, pt is on TPN because feeding pump is not available yet. PPN currently provides 1436 kcal, 80 gm protein and 2112 ml fluids daily which meets: 60% of lower end of estimated calorie needs and 82% of lower end of estimated protein needs. Pt is not yet meeting adequate nutrition. Awaiting feeding pump. RN notified of recommended TF formula and infusion rate once pump is available. Current PO intake: N/A on nutrition support Estimated Energy Expenditure (kcals/day) 8087-8159 kcal/day (30-35 kcal/kg IBW for wound healing/wt promotion) Estimated Protein Required (g/day) 97-122 gm/day (1.2-1.5gm/kg IBW for wound healing/ wt promotion) Estimated Fluid Required (l/day) 2-2.3 L/day (30-35 mL/kg CBW d/t possible dehydration) Problem/Etiology/Signs/Symptoms Inadequate TF support related to critical illness as evidenced by no currently infusing nutrition support. (*not appropriate, on TPN support) Increased nutritional needs related to catabolic condition as evidenced by 81% IBW,estimated nutritional needs for wound healing and wt promotion . (*ongoing) Expected Outcomes/Goals - Monitor TPN tolerance w/ goals of pt meeting greater than 50% of estimated nutritional needs, labs trending WML, and skin integrity/wt maintenance. Dietitian Recommendations * Continue TPN nutrition support order of D20% AA8.5% at 78mL/hr, IL20% at 10 mL/hr. -Provides: 1436 kcal/day, 80 gm of protein/day, 2112 ml total volume/day, and GIR: 2 gm CHO/kg/min. -Meets: 60% of lower estimated caloric needs and 82% of lower estimated protein needs. * Once feeding pump is available: Recommend: Glucerna 1.2 at 30ml/hr, increase to goal 80ml/hr, Jordan BID, FWF 100ml/ Q6H via GT. Which will provide: 2464 kcal, 120 gm protein and 1946ml free water daily. Which will meet: 87% of upper end of estimated calorie needs and 98% of upper end of estimated protein needs. Follow Up High Risk: F/U in 2-3days
--- NOTE | 2019-02-27 11:08 | NUR ---
Dietitian Recommendations * Continue TPN nutrition support order of D20% AA8.5% at 78mL/hr, IL20% at 10 mL/hr. -Provides: 1436 kcal/day, 80 gm of protein/day, 2112 ml total volume/day, and GIR: 2 gm CHO/kg/min. -Meets: 60% of lower estimated caloric needs and 82% of lower estimated protein needs. * Once feeding pump is available: Recommend: Glucerna 1.2 at 30ml/hr, increase to goal 80ml/hr, Jordan BID, FWF 100ml/ Q6H via GT. Which will provide: 2464 kcal, 120 gm protein and 1946ml free water daily. Which will meet: 87% of upper end of estimated calorie needs and 98% of upper end of estimated protein needs. Please see Nutrition F/U note for details. SUZY, KALYAN
--- NOTE | 2019-02-27 12:00 | NUR ---
Note Pt resting in bed. Pt given hygiene care and turned q2' and PRN all shift. No needs noted. Call light within reach.
[2019-02-27 12:44] VITALS: BP_SYST 136
--- NOTE | 2019-02-27 16:40 | NUR ---
Note Received a feeding pump from [place] - feeding machine not compatible with unit machine used in this hospital. Several attempts and several RN's tried to work with this feeding pump - no success at this time - attempted for 2-3 hours. Will notify Lorry Weigher. Pt resting in bed, no needs noted at this time. CAPRI PICC intact and patent infusing IVF's and TPN/Lipids well all shift. Call light within reach.
[2019-02-27 17:23] VITALS: BP_SYST 127
--- NOTE | 2019-02-27 18:40 | NUR ---
Note Pt resting in bed - no needs noted. Abdominal sites - old GT site and new GT site dressings are CDI at this time with abdominal binder on all shift. Pt was checked on q1' and PRN all shift. No SOB/resp distress or pain/discomfort noted at this time. Pt maintained with safety precautions all shift. CAPRI PICC intact and patent infusing IVF's and TPN/Lipids. Call light within reach.
--- NOTE | 2019-02-27 19:25 | NUR ---
CHANGE OF SHIFT; pt. awake, non verbal, observed contact isolation (history of infection, unknown source). endorsed by day shift re; feeding pump borrowed from [employer], still unable to use since machine keeps alarming ,unable to start, charge nurse aware, will try to have it work. will assess later.
[2019-02-27 20:00] VITALS: BP_SYST 131
--- NOTE | 2019-02-27 20:00 | NUR ---
NOTES: charge nurse Dakota tried to check feeding pump but unsuccessful. G tube site clean with dressing and abdominal binder in place. IV TPN/lipids infusing via PICC line on rt. upper arm. another IV of D5 1/2 NS @ 30 cc.hr on the other port. pt. gets really stiff on movements, try to resist, strong left arm, hx of stroke with rt. sided weakness. pt. is incontinent of urine and stool. on seizure precautions.
--- NOTE | 2019-02-27 21:00 | NUR ---
NOTES: other charge nurse Ayde tried to check feeding pump but also unsuccessful. pt. incontinent of urine and had small amt. of stool. terry care done with ADVERTISING SALES EXECUTIVE and kept dry. repositioned.
[2019-02-27] MEDS: FAT EMULSIONS 250 ML IV SCH (21:27)
[2019-02-27] MEDS: POTASSIUM CHLORIDE IV SCH ×10 (21:31)
[2019-02-27] MEDS: [UNRECOGNIZED DRUG - OTHER] IV SCH ×10 (21:31)
[2019-02-27] MEDS: TPN PERIPHERAL IV SCH ×10 (21:31)
[2019-02-27] MEDS: SODIUM CHLORIDE IV SCH ×10 (21:31)
[2019-02-27] MEDS: KCL 20 mEq in D5/0.45NS 1000mL 1,000 ML IV SCH (21:37)
[2019-02-27] MEDS ORDERED: KCL 20 mEq in D5/0.45NS 1000mL 1,000 ML IV ONE (21:45)
--- NOTE | 2019-02-27 22:00 | NUR ---
NOTES: pt. eyes closed when checked. no acute distress. condition observed.
--- NOTE | 2019-02-28 00:15 | NUR ---
NOTES: finally a compatible feeding pump got available and started feeding with Jevity 1.5 @ 20 cc/hr. , flush with water. abdominal binder kept in place. pt. been dozing on and off. warm blanket placed, with cool hands.
[2019-02-28 02:17] VITALS: BP_SYST 141
--- NOTE | 2019-02-28 02:30 | NUR ---
NOTES: pt. been sleeping at intervals. no distress. condition observed. on fall and seizure precautions. repositioned.
--- NOTE | 2019-02-28 07:30 | NUR ---
NURSES NOTES: PT NON VERBAL UNABLE TO ASSESS NEEDS, AWAKE , NO RESPIRATORY DISTRESS NOTED, AFEBRILE, ABDOMINAL BINDER IN PLACE, PICC LINE IN PLACE, NO SIGNS OF BLEEDING NOTED, NO DRAINAGE,. RIGHT SIDED WEAKNESS WIT HISTORY OF CVA, INCONTINENT, ON SEIZURES PRECAUTION IN PLACE, PADDED SIDE RAILS. SAFETY PRECAUTION IN PLACE . WILL CONTINUE TO MONITOR.
[2019-02-28] MEDS: LevALBUTEROL HCL 1.25 MG/0.5 ML *CONC.* VIAL.NEB (XOPENEX CONC.) INH SCH ×3 (07:41→23:15)
[2019-02-28] MEDS: levETIRAcetam 1,000 MG in NS 100 ML IV SCH ×2 (09:48→21:14)
[2019-02-28] MEDS: PANTOPRAZOLE SODIUM 40 MG/VIAL (PROTONIX) IVP SCH (09:48)
[2019-02-28 12:44] VITALS: BP_SYST 146
--- NOTE | 2019-02-28 13:17 | NUR ---
Nutrition Note Pt w/ 2 active nutrition support orders. TPN running per pharmacy at 87ml/hr including lipids and EN support Jevity 1.5 running at 20ml/hr and w/ MD order to increase rate to goal of 50ml/hr. Current combined nutrition support provides excessive calories and protein (3236 kcal/day, 157 gm protein/day which meets 114% of upper end of estimated calorie needs and 129% of upper end of estimated protein needs). TPN may be tapered or discontinued depending on EN tolerance and intake. Dietitian Recommendation: * Recommend D20% AA 8.5% at 50ml/hr (goal rate), IL20% at 10ml/hr. Provides: 1092 kcal, 51 gm protein and GIR 4.2 gm CHO/kg/min With EN support Glucerna 1.2 at 50ml/hr (goal w/ TPN), Jordan BID. Provides: 1600 kcal, 77 gm protein daily. Combined will provide: 2692 kcal, 128 gm protein daily. Which will meet: 95% of upper end of estimated calorie needs and 105% of upper end of estimated protein needs. * Once TPN is discontinued, recommend: Glucerna 1.2 at 30ml/hr, increase to goal 80ml/hr, Jordan BID, FWF 100ml/ Q6H via GT. Provides: 2464 kcal, 120 gm protein and 1946ml free water daily. Meets: 87% of upper end of estimated calorie needs and 98% of upper end of estimated protein needs. KALYAN ALMONTE Addendum: 02/28/19 at [address] KALYAN s/w MADISON Diop regarding new rec.
--- NOTE | 2019-02-28 13:50 | NUR ---
Discharge Planning: DCP faxed referral to Vivian Mcmanus [phone]) DCP to follow up. Addendum: 02/28/19 at 1557 by Esthela RAY [facility] ) [id number] Addendum: 02/28/19 at 1605 by Esthela Baca DP [facility] Mcman[facility] p [phone]) [facility], SAE made nurse and CM aware
[2019-02-28 15:20] LABS: BASOPHILS % (AUTO) 0.2 % (0.0-2.0); EOSINOPHILS # (AUTO) 0.2 K/uL (0.0-0.4); EOSINOPHILS % (AUTO) 3.8 % (0.0-4.0); HEMATOCRIT 37.4 % (36-54); HEMOGLOBIN 12.6 g/dL (14.0-18.0); LYMPHOCYTES # (AUTO) 2.5 K/uL (1.0-5.5); LYMPHOCYTES % (AUTO) 46.5 % (20.5-51.5); MEAN CORPUSCULAR HEMOGLOBIN 28 pg (27-31); MEAN CORPUSCULAR HGB CONC 34 % (32-36); MEAN CORPUSCULAR VOLUME 82 fL (79.0-98.0); MONOCYTES # (AUTO) 0.6 K/uL (0.0-1.0); MONOCYTES % (AUTO) 10.4 % (1.7-9.3); NEUTROPHILS # (AUTO) 2.1 K/uL (1.8-7.7); NEUTROPHILS % (AUTO) 39.1 % (40.0-70.0); PLATELET COUNT (AUTO) 289 K/uL (130-430); RED BLOOD CELL COUNT(AUTO) 4.53 MIL/uL (4.2-6.2); RED CELL DISTRIBUTION WIDTH 13.2 % (9.0-15.0); WHITE BLOOD COUNT (AUTO) 5.4 K/uL (4.8-10.8)
[2019-02-28 15:28] LABS: ALBUMIN 3.3 g/dL (3.4-4.8); CALCIUM 9.3 mg/dL (8.4-11.0); CREATININE 0.63 mg/dL (0.55-1.30); PHOSPHORUS 3.8 mg/dL (2.7-4.5); TOTAL BILIRUBIN 0.4 mg/dL (0.0-1.0)
[2019-02-28 16:51] VITALS: BP_SYST 137
--- NOTE | 2019-02-28 19:30 | NUR ---
NURSES NOTES END OF SHIFT REPORT COMPLETED, ALL QUESTIONS ANSWERED.
[2019-02-28 20:00] VITALS: BP_SYST 141
--- NOTE | 2019-02-28 20:00 | NUR ---
PM SHIFT ASSESSMENT Received patient lying in bed, aox1, nonverbal, in no distress, vital signs stable, right upper arm picc line intact and patent, IVF infusing at 30 ml/hr, TPN infusing at 50 ml/hr and lipids at 10 ml/hr. Gtube feeding infusing at 30 ml/hr, abdominal binder in place, patient turned and repositioned with pillow support, seizure and isolation precautions in place, seizure pads to side rails, bilateral scd to lower legs in place, will monitor.
[2019-02-28] MEDS: KCL 20 mEq in D5/0.45NS 1000mL 1,000 ML IV SCH (21:14)
[2019-02-28] MEDS: FAT EMULSIONS 250 ML IV SCH (21:17)
[2019-02-28] MEDS: SODIUM CHLORIDE IV SCH ×10 (21:18)
[2019-02-28] MEDS: [UNRECOGNIZED DRUG - OTHER] IV SCH ×10 (21:18)
[2019-02-28] MEDS: POTASSIUM CHLORIDE IV SCH ×10 (21:18)
[2019-02-28] MEDS: TPN PERIPHERAL IV SCH ×10 (21:18)
--- NOTE | 2019-02-28 22:30 | NUR ---
RN ROUNDS/HYGIENE Patient awake, in no distress, due medications administered, via picc line, Gtube flushed with water, no residual noted, increased gt feeding to 40 ml/hr. Incontinence care provided, patient turned and repositioned with pillow support, bilateral scd in place, isolation precautions in place, will closely monitor.
[2019-03-01 00:22] VITALS: BP_SYST 125
--- NOTE | 2019-03-01 00:41 | NUR ---
RN ROUNDS Patient resting quietly in bed, in no distress, breathing is even and unlabored, remains on room air, vital signs stable, repositioned and turned with pillow support, fall and isolation precautions in place, will closely monitor.
--- NOTE | 2019-03-01 02:38 | NUR ---
RN ROUNDS Patient asleep, breathing is even and unlabored, remains on room air, repositioned and turned with pillow support, fall and isolation precautions in place, will closely monitor.
--- NOTE | 2019-03-01 04:05 | NUR ---
RN ROUNDS Patient resting quietly in bed, in no distress, breathing is even and unlabored, repositioned and turned with pillow support, fall and isolation precautions in place, will closely monitor
--- NOTE | 2019-03-01 06:07 | NUR ---
RN ROUNDS/HYGIENE Patient awake, in no distress, remains on room air, Gtube flushed with 100 ml of water, no residual noted, increased gt feeding to 50 ml/hr. Aspiration precautions in place, Incontinence care provided, patient had a bowel movement, patient turned and repositioned with pillow support, bilateral scd in place, isolation and seizure precautions maintained, no seizure activity note through out the shift, needs attended to, will continue to monitor until report given to am nurse.
[2019-03-01 06:59] LABS: ALBUMIN 3.4 g/dL (3.4-4.8); CALCIUM 8.8 mg/dL (8.4-11.0); CREATININE 0.67 mg/dL (0.55-1.30); PHOSPHORUS 3.7 mg/dL (2.7-4.5); POTASSIUM 4.2 mmol/L (3.5-5.1); TOTAL BILIRUBIN 0.2 mg/dL (0.0-1.0)
[2019-03-01] MEDS: LevALBUTEROL HCL 1.25 MG/0.5 ML *CONC.* VIAL.NEB (XOPENEX CONC.) INH SCH ×2 (07:23→15:24)
--- NOTE | 2019-03-01 07:40 | NUR ---
Opening Note received bedside SBAR report from night cleaner RN, patient resting in bed, respirations even and unlabored on room air, no acute distress noted, educated patient on use of call light and asked to call for assistance, call light in reach, bed in low and locked position, bed alarm on.
[2019-03-01 08:00] VITALS: BP_SYST 146
--- NOTE | 2019-03-01 09:50 | NUR ---
RN Rounds patient resting in bed, respirations even and unlabored, PICC site to right upper arm clean, dry, and intact, no acute distress noted.
[2019-03-01] MEDS: levETIRAcetam 1,000 MG in NS 100 ML IV SCH ×2 (10:05→20:48)
[2019-03-01] MEDS: PANTOPRAZOLE SODIUM 40 MG/VIAL (PROTONIX) IVP SCH (10:05)
--- NOTE | 2019-03-01 12:35 | NUR ---
Tube Feeding new tube feeding with new tubing hung at this time, patient tolerating tube feeding well, 10ml residual from tube feeding, HOB elevated 40 degrees, no acute distress noted.
[2019-03-01 12:59] VITALS: BP_SYST 125
--- NOTE | 2019-03-01 14:20 | NUR ---
RN Rounds patient resting in bed, respirations even and unlabored on room air, no acute distress noted, no pain noted using FLACC scale.
[2019-03-01 16:40] VITALS: BP_SYST 121
--- NOTE | 2019-03-01 17:03 | NUR ---
RN Rounds patient resting in bed, respirations even and unlabored on room air, no acute distress noted.
--- NOTE | 2019-03-01 18:17 | NUR ---
Physician Rounds Rounds with Dr. Causey, informed him of patients Mg level 1.5, new orders received.
[2019-03-01] MEDS ORDERED: MAGNESIUM SULFATE 4 GM in D5W 250 ML IV ONE (18:30)
--- NOTE | 2019-03-01 18:56 | NUR ---
AMBULANCE ON WILL CALL SPOKE WITH PRESTON FROM [facility] ([phone])
--- NOTE | 2019-03-01 19:26 | NUR ---
Closing Note bedside SBAR report given to receiving RN, patient resting in bed, no acute distress noted, Mg rider not yet available from pharmacy, endorsed mg rider to casino shift manager RN, side rails padded, educated patient on use of call light and asked to call for assistance, call light in reach, bed in low and locked position, bed alarm on, care endorsed to casino shift manager RN.
[2019-03-01 19:30] VITALS: BP_SYST 132
--- NOTE | 2019-03-01 20:00 | NUR ---
RN ROUNDS Patient awake, no distress noted, vital signs stable, Mag rider administered to right upper arm picc line, gt feeding infusing at 50 ml/hr, no residual noted, flushed with 100 ml of water, patient turned and repositioned with pillow support, fall and isolation precautions in place, will monitor.
[2019-03-01] MEDS ORDERED: SODIUM CHLORIDE IV SCH ×10 (21:00)
[2019-03-01] MEDS ORDERED: SODIUM ACETATE IV SCH ×10 (21:00)
[2019-03-01] MEDS ORDERED: [UNRECOGNIZED DRUG - OTHER] IV SCH ×10 (21:00)
[2019-03-01] MEDS ORDERED: TPN PERIPHERAL IV SCH ×10 (21:00)
[2019-03-01 21:02] VITALS: BP_SYST 132
--- NOTE | 2019-03-01 21:56 | NUR ---
AMBULANCE PICKUP SET CLINICAL LABORATORY TECHNOLOGIST TIME WITH [facility] ([phone]) ETA @ [phone]
--- NOTE | 2019-03-01 22:00 | NUR ---
Spoke to Dr. Causey, new order to discharge patient tonight, change keppra IV to Gt and to remove his right upper arm picc line. will carry out.
--- NOTE | 2019-03-01 22:30 | NUR ---
Report Report given to Aline from [facility], patient will be going to room 127A. All questions answered.
--- NOTE | 2019-03-01 22:56 | NUR ---
DISCHARGE Patient awake, in stable condition, vitals stable, on room air, no distress noted, right upper arm picc line removed with tip intact, no active bleeding noted, patient cleaned and incontinence care provided, report given to medic personnel, all paperworks given to medic personnel, patient has no belongings.
[2019-03-02] MEDS ORDERED: LevETIRAcetam 500 MG/5 ML UDC ORAL LIQUID GT SCH (09:00)
== END 2019-03-01 23:05 | DRG 393 ==
LOC: SED 15:27 → SMU 18:01
PROVIDERS: ADMIT Family Medicine; ATTEND Family Medicine
PROC: 0DH67UZ Insertion of Feeding Device into Stomach, Via Natural or Artificial Opening (ICD-10-PCS; principal; 2019-02-21 15:30)
PROC: 02HV33Z Insertion of Infusion Device into Superior Vena Cava, Percutaneous Approach (ICD-10-PCS; 2019-02-25)
PROC: B548ZZA Ultrasonography of Superior Vena Cava, Guidance (ICD-10-PCS; 2019-02-25)
DX: K94.23 Gastrostomy malfunction (principal); R40.2223 Coma scale, best verbal response, incomprehensible words, at hospital admission; R40.2343 Coma scale, best motor response, flexion withdrawal, at hospital admission; L03.311 Cellulitis of abdominal wall; G93.40 Encephalopathy, unspecified; K94.22 Gastrostomy infection; F29 Unspecified psychosis not due to a substance or known physiological condition; G40.909 Epilepsy, unspecified, not intractable, without status epilepticus; I10 Essential (primary) hypertension; R13.10 Dysphagia, unspecified; Y82.8 Other medical devices associated with adverse incidents; Y83.8 Other surgical procedures as the cause of abnormal reaction of the patient, or of later complication, without mention of misadventure at the time of the procedure; Z87.820 Personal history of traumatic brain injury; Z79.899 Other long term (current) drug therapy; R40.2423 Glasgow coma scale score 9-12, at hospital admission
CPT/HCPCS: 36415; 43246; 71045; 80048; 80053; 81000-TC; 82962; 83605; 83690-TC; 83735-TC; 84100-TC; 84478-TC; 85025; 85610-TC; 85730-TC; 87040-TC; 87081; 87086; 93005; 94640; 94668; 94760; 96365; 96367; 99285; C1751; C9113; J0696; J1815; J1953; J2175; J2250; J2543; J3475; J3480; J3490; J7030; J7060; J7120; J7131; J7612

== ENCOUNTER 2020-10-16 23:43 | Inpatient (IN) | payer OTHER, MEDICAID, SELFPAY ==
[~2020-10-16] VITALS: Ht 177.8 cm; Wt 72.6 kg
[~2020-10-16 23:43] MED LIST: AMLO5TAB4 GT; BISA-79 GT; FLEETMO RC; FOLI-43 GT; HYDR-4272 GT; HYDR-4272 PO; IPRA3AMP9 INH; LEVE1000 GT; MOM PO; PROP10TA10 GT; QUET50TA GT; RIVA10TA GT; SENN8.6T19 GT; THIA100T73 GT
[2020-10-16 23:51] VITALS: BP_SYST 115
--- NOTE | 2020-10-16 23:51 | NUR ---
Placed in room 7 . Placed on director shopper marketing, blood pressure machine and pulse oximeter. To gown for exam. Side rails up. Report given to BEKA WALLACE.
--- NOTE | 2020-10-17 00:29 | NUR ---
PT BIB [facility]LS AMBULANCE FOR COFFEE FROUND EMESIS X2. peace officer STATED THEY WERE CALLED FOR PT DUE TO AN EPISODE OF COFFEE GROUND EMESIS, UPON ARRIVAL EMS SATED THEY WITNESSED AN EPISODE OF VOMITING. PT IS BASELINE A&OX0. PT IS CONTRACTED ON ALL LIMBS AND IS BEDBOUND. TAKES ELIQUIS DAILY AND HAS A HISTORY OF EPILEPSY
[2020-10-17] MEDS ORDERED: PANTOPRAZOLE SODIUM 40 MG/VIAL (PROTONIX) IVP ONE (00:30)
--- NOTE | 2020-10-17 00:45 | NUR ---
# 24 gauge angiocath placed to RIGHT HAND . Use of asceptic technique. Opsite placed over site. Blood return noted. Flushed with 10 cc of normal saline. No evidence of infiltration noted. Patient tolerated well.
--- NOTE | 2020-10-17 00:50 | NUR ---
# 20 gauge angiocath placed to L FOREARM. Use of asceptic technique. Opsite placed over site. Blood return noted. Blood for lab drawn from site. Flushed with 10 cc of normal saline. No evidence of infiltration noted. Patient tolerated well.
--- NOTE | 2020-10-17 00:55 | NUR ---
RADIOLOGY AT BEDSIDE
[2020-10-17] MEDS ORDERED: FER300L GT (01:18)
[2020-10-17] MEDS ORDERED: APIX2.5T GT ×2 (01:19→01:20)
[2020-10-17 01:25] LABS: BASOPHILS % (AUTO) 0.4 % (0.0-2.0); HEMATOCRIT 40.1 % (36-54); LYMPHOCYTES % (AUTO) 17.3 % (20.5-51.5); MEAN CORPUSCULAR HEMOGLOBIN 27 pg (27-31); MEAN CORPUSCULAR HGB CONC 33 % (32-36); MEAN CORPUSCULAR VOLUME 82 fL (79.0-98.0); MONOCYTES # (AUTO) 0.5 K/uL (0.0-1.0); NEUTROPHILS # (AUTO) 9.2 K/uL (1.8-7.7); NEUTROPHILS % (AUTO) 78.3 % (40.0-70.0); PLATELET COUNT (AUTO) 251 K/uL (130-430); RED BLOOD CELL COUNT(AUTO) 4.92 MIL/uL (4.2-6.2); RED CELL DISTRIBUTION WIDTH 13.4 % (9.0-15.0); WHITE BLOOD COUNT (AUTO) 11.8 K/uL (4.8-10.8)
[2020-10-17 01:33] LABS: CALCIUM 9.2 mg/dL (8.4-11.0); CREATININE 0.98 mg/dL (0.55-1.30); POTASSIUM 3.3 mmol/L (3.5-5.1)
[2020-10-17 01:37] LABS: INR 1.1 (0.80-1.20); PROTHROMBIN TIME 10.8 SECS (9.5-12.5)
[2020-10-17 01:39] LABS: ALBUMIN 3.6 g/dL (3.4-4.8); TOTAL BILIRUBIN 0.8 mg/dL (0.0-1.0)
--- NOTE | 2020-10-17 01:40 | NUR ---
RECEIVED REPORT FROM MADISON IRELAND/MADISON BLANCO. WILL ASSUME ALL CARE OF PATIENT.
[2020-10-17] MEDS ORDERED: VANCOMYCIN HCL 1,000 MG in NS 250 ML IV ONE (01:45)
[2020-10-17] MEDS ORDERED: NACL 0.9% 1,000 ML IV ONE (01:45)
[2020-10-17] MEDS ORDERED: AZITHROMYCIN 500 MG in NS 250 ML IV ONE (01:45)
[2020-10-17] MEDS ORDERED: CEFEPIME 2 GM in D5W 100 ML IV ONE (01:45)
[2020-10-17] MEDS ORDERED: VANCOMYCIN HCL 1000 MG/VIAL IV ONE (01:49)
[2020-10-17] MEDS ORDERED: CEFEPIME 1 GM/VIAL (MAXIPIME) ONE (01:57)
[2020-10-17] MEDS ORDERED: AZITHROMYCIN 500 MG/VIAL (ZITHROMAX) IV ONE (01:57)
--- NOTE | 2020-10-17 02:15 | NUR ---
# 16 FR Chavarria catheter with use of sterile technique. Immediate return of 0 cc urine noted. Bedside drainage bag placed below level of bladder. Urine sample collected and sent to lab. Pt tolerated procedure WELL. Patient unable to toilet self.
[2020-10-17 02:23] LABS: C-REACTIVE PROTEIN QUANT 6.5 mg/dL (0-0.5)
--- NOTE | 2020-10-17 02:26 | NUR ---
MED REC COMPLETE
--- NOTE | 2020-10-17 02:26 | NUR ---
BELONGINGS LIST DONE
[2020-10-17 02:28] LABS: FIBRINOGEN 500 mg/dL (200-400)
--- NOTE | 2020-10-17 02:53 | NUR ---
PT IS FULL CODE
--- NOTE | 2020-10-17 03:16 | NUR ---
REPORT GIVEN TO MAHENDRA WALLACE.
--- NOTE | 2020-10-17 03:20 | NUR ---
Patient will be admitted to care of [facility]. Admitted to TELE unit. PENDING ROOM ASSIGNMENT, REQUESTED TO CHARGE NURSE MARIELA Paiges list completed. Complete and up to date summary report printed. SBAR report to be given at bedside with opportunity for questions.
[2020-10-17 03:23] LABS: BILIRUBIN,URINE NEGATIVE (NEGATIVE); BLOOD, URINE 3+ (NEGATIVE); CLARITY/URINE SL CLOUDY (CLEAR); COLOR,URINE YELLOW (YELLOW); GLUCOSE,URINE NEGATIVE (NEGATIVE); KETONES,URINE NEGATIVE (NEGATIVE); LEUKOCYTE ESTERASE ,URINE NEGATIVE (NEGATIVE); NITRITE, URINE NEGATIVE (NEGATIVE); PH,URINE 6.5 (5.0-8.0); PROTEIN URINE 1+ (NEGATIVE); UROBILINOGEN,URINE 0.2 (0.2-1.0)
[2020-10-17] MEDS ORDERED: ACETAMINOPHEN 325 MG TABLET PO PRN (03:30)
[2020-10-17] MEDS ORDERED: ONDANSETRON HCL 4 MG/2 ML VIAL IVP PRN (03:30)
[2020-10-17] MEDS ORDERED: LevALBUTEROL HCL 1.25 MG/0.5 ML *CONC.* VIAL.NEB (XOPENEX CONC.) INH PRN (03:30)
[2020-10-17 03:37] LABS: RBC,URINE >100 /HPF (0-3)
[2020-10-17 03:38] LABS: BACTERIA,URINE FEW /HPF (None Seen); WBC,URINE 0-3 /HPF (0-3)
[2020-10-17] MEDS ORDERED: KCL 20 mEq in D5/0.45NS 1000mL 1,000 ML IV SCH (04:00)
--- NOTE | 2020-10-17 04:22 | NUR ---
Transfer to TELE via ACLS protocol. Licensed nurse present. IV present no signs or symptoms of infiltration.
--- NOTE | 2020-10-17 04:22 | NUR ---
BED ASSIGNMENT GIVEN TO 135B.
[2020-10-17] MEDS ORDERED: PIPERACILLIN/TAZOBACTAM 3.375 GM/VIAL (ZOSYN) IV ONE (04:52)
[2020-10-17] MEDS ORDERED: KCL 20 mEq in D5/0.45NS 1000mL 1,000 ML IV ONE (04:53)
[2020-10-17 05:37] VITALS: BP_SYST 105
[2020-10-17 05:51] VITALS: BP_SYST 109
[2020-10-17] MEDS ORDERED: PIPERACILLIN/TAZO 3.375/DEX-IS 50 ML IV SCH (06:00)
--- NOTE | 2020-10-17 06:14 | NUR ---
ADMISSION NOTE PT ARRIVED TO UNIT AT 05:00 VIA [facility] ACCOMPNIED BY RN . PT TRANSFERRED FROM [facility] TO BED WITH 2 PERSON ASSIST. PT IS ALERT, UNABLE TO ASSESS MENTATION PT IS NON VERBAL. PT IS NOTED TO TRACK. PT PLACED ON TELEMETRY, ST HR 109. NO SIGNS OF DIZZINESS, LIGHTHEADENESS OR CHEST PAIN. PERIPHERAL PULSES PALPABLE. NO EDEMA NOTED. RESPIRATIONS EVEN UNLABORED, 2L NC. LUNG SOUNDS DIMINISHED TO BASES. NO SOB NOTED. WET COUGH NOTED, NON-PRODUCTIVE. BS ACTIVE, ABD SOFT AND FLAT, NON-TENDER. LBM 10/17, LOOSE, PERICARE PROVIDED. GTUBE RUQ, PATENT, NO RESIDUALS, RUNNING JEVITY 1.2 @40MLHR WITH 100ML FREE WATER FLUSH. HERNANDEZ CATHETER PATENT, NO COMPLICATIONS TO SITE, DRAINING TO GRAVITY, NERI BLOOD TINGED URINE. BEDBOUND, R SIDED WEAKNESS WITH CONTRACTURES TO RUE/RLE. L HAND CONTRACTED. UNABLE TO SELF TURN. REPOSTION Q2H. SKIN INTACT. SL R HAND 24G PATENT, NO COMPLICATIONS TO SITE. IV LFA 20G RUNNING D51/2NS+20MEQ KCL @ 75ML/HR, NO COMPLICATIONS TO SITE, PATENT. BED IN LOWEST POSITION, SIDE RAILS X 2, CALL LIGHT WITHIN REACH, BED ALARM ON.
--- NOTE | 2020-10-17 06:47 | NUR ---
Nutrition Update Juan Scale 13 noted. Pt admitted for Aspiration Pneumonia Diet: Jevity 1.2 at 40ml/hr, FWF 100ml via GT BMI: 23 kg/m2 RD to follow per nutrition care standards.
[2020-10-17] MEDS ORDERED: LevALBUTEROL HCL 1.25 MG/0.5 ML *CONC.* VIAL.NEB (XOPENEX CONC.) INH SCH (07:00)
--- NOTE | 2020-10-17 07:10 | NUR ---
OPENING NOTE RECEIVED SBAR FROM NIGHT RN, PATIENT IN BED, RESPIRATIONS EVEN, NON LABORED, BED IN LOW AND LOCKED POSITION CALL LIGHT WITHIN REACH, BED ALARM ON. 2L NASAL CANULA, IVF'S RUNNING ORDERED, HERNANDEZ DRAINING BY GRAVITY.
[2020-10-17] MEDS ORDERED: LevETIRAcetam 500 MG/5 ML UDC ORAL LIQUID GT SCH (09:00)
--- NOTE | 2020-10-17 10:00 | NUR ---
NURSE NOTE INCONTINENT OF BOWEL, PROVIDED ANGEL LUIS CARE, CHANGED LINENS, REPOSITIONED PATIENT
[2020-10-17] MEDS: PANTOPRAZOLE SODIUM 40 MG/VIAL (PROTONIX) IVP SCH ×2 (10:01→22:11)
[2020-10-17] MEDS: KCL 20 mEq in D5/0.45NS 1000mL 1,000 ML IV SCH ×2 (12:00→23:45)
[2020-10-17 12:37] VITALS: BP_SYST 100
[2020-10-17] MEDS: PIPERACILLIN/TAZO 3.375/DEX-IS 50 ML IV SCH ×3 (13:17→23:45)
[2020-10-17] MEDS: VANCOMYCIN HCL 1,000 MG in NS 250 ML IV SCH (13:17)
[2020-10-17] MEDS: ALBUTEROL MDI INHALATION 8 GM INH INH SCH ×2 (13:43→19:36)
[2020-10-17] MEDS ORDERED: BISACODYL 5 MG TABLET.DR (DULCOLAX) GT PRN (14:00)
[2020-10-17] MEDS ORDERED: IPRATROPIUM/ALBUTEROL SULFATE 3 ML AMPUL.NEB (DUONEB) INH PRN (14:00)
--- NOTE | 2020-10-17 14:00 | NUR ---
NURSE NOTE INCONTINENT OF BOWEL, PROVIDED ANGEL LUIS CARE, CHANGED LINENS REPOSITIONED PATIENT
--- NOTE | 2020-10-17 14:08 | NUR ---
CONSULT ID PNEUMONIA DR BISHOP [phone] S/W [facility]
[2020-10-17] MEDS ORDERED: ACETAMINOPHEN 650 MG/20.3 ML UDC GT PRN ×2 (14:30)
[2020-10-17 16:14] VITALS: BP_SYST 100
--- NOTE | 2020-10-17 17:00 | NUR ---
NURSE NOTE INCONTINENT OF BOWEL, PROVIDED ANGEL LUIS CARE, CHANGED LINENS REPOSITIONED PATIENT
--- NOTE | 2020-10-17 18:15 | NUR ---
PCR COLLECTED PCR TAKEN TO LAB
--- NOTE | 2020-10-17 19:12 | NUR ---
CLOSING NOTE PROVIDED SBAR TO NIGHT RN, PATIENT IN BED, RESPIRATIONS EVEN, NON LABORED BED IN LOW AND LOCKED POSITION CALL LIGHT WITHIN REACH, BED ALARM ON, IVF'R RUNNING ORDERED, GTUBE RUNNING ORDERED. HERNANDEZ DRAINING BY GRAVITY. ENDORSED CARE TO NIGHT RN
--- NOTE | 2020-10-17 19:35 | NUR ---
ROUNDS PATIENT IN BED, AWAKE, NON VERBAL, VITALS STABLE. NO SIGS OF ANY PAIN AND DISCOMFORT NOTED. ASSESSMENT DONE AND DOCUEMTED. SEE FLOWSHEET. NEEDS ATTENDED TO. SAFETY AND FALL MEASURES IN PLACED. BED IN LOW AND LOCKED POSITION. CALL LIGHT PLACED WITHIN REACH.
[2020-10-17 20:00] VITALS: BP_SYST 101
[2020-10-17] MEDS: APIXABAN 2.5 MG TABLET GT SCH (22:10)
[2020-10-17] MEDS: amLODIPine BESYLATE 5 MG TABLET GT SCH (22:11)
[2020-10-17] MEDS: MILK OF MAGNESIA 30 ML UDC GT SCH (22:11)
[2020-10-17] MEDS: FERROUS SULFATE 300 MG/5 ML UDC GT SCH (22:12)
[2020-10-17] MEDS: LevETIRAcetam 500 MG/5 ML UDC ORAL LIQUID GT SCH (22:12)
[2020-10-18] VITALS: BP_SYST 105
[2020-10-18] MEDS: ALBUTEROL MDI INHALATION 8 GM INH INH SCH ×4 (00:03→23:37)
--- NOTE | 2020-10-18 00:16 | NUR ---
PATIENT RESTING: Patient resting quietly. No acute distress noted. Vital signs within normal range.
[2020-10-18] MEDS: VANCOMYCIN HCL 1,000 MG in NS 250 ML IV SCH (00:39)
--- NOTE | 2020-10-18 04:13 | NUR ---
ROUNDS PATIENT SLEEPING, VITALS STABLE, RESPIRATIONS EVEN AD UNLABORED, WILL CONTINUE TO MONITOR.
[2020-10-18] MEDS: PIPERACILLIN/TAZO 3.375/DEX-IS 50 ML IV SCH (05:31)
--- NOTE | 2020-10-18 06:50 | NUR ---
CLOSING NOTES PATIENT RESTING COMFORTABLY IN BED, NO SOB NOR PAIN AND DISCOMFORT NOTED. ALL NEEDS ATTENDED TO. SAFETY MEASURES MAINTAINED. WILL CONTINUE TO MONITOR.
[2020-10-18 06:54] LABS: BASOPHILS % (AUTO) 0.4 % (0.0-2.0); EOSINOPHILS # (AUTO) 0.1 K/uL (0.0-0.4); EOSINOPHILS % (AUTO) 0.8 % (0.0-4.0); HEMATOCRIT 33.8 % (36-54); HEMOGLOBIN 11.1 g/dL (14.0-18.0); LYMPHOCYTES # (AUTO) 1.7 K/uL (1.0-5.5); LYMPHOCYTES % (AUTO) 23.9 % (20.5-51.5); MEAN CORPUSCULAR HEMOGLOBIN 27 pg (27-31); MEAN CORPUSCULAR HGB CONC 33 % (32-36); MEAN CORPUSCULAR VOLUME 82 fL (79.0-98.0); MONOCYTES # (AUTO) 0.5 K/uL (0.0-1.0); MONOCYTES % (AUTO) 7.1 % (1.7-9.3); NEUTROPHILS # (AUTO) 4.8 K/uL (1.8-7.7); NEUTROPHILS % (AUTO) 67.8 % (40.0-70.0); PLATELET COUNT (AUTO) 186 K/uL (130-430); RED BLOOD CELL COUNT(AUTO) 4.12 MIL/uL (4.2-6.2); RED CELL DISTRIBUTION WIDTH 13.8 % (9.0-15.0)
[2020-10-18 07:19] LABS: ALBUMIN 2.8 g/dL (3.4-4.8); CALCIUM 8.3 mg/dL (8.4-11.0); CREATININE 0.86 mg/dL (0.55-1.30); POTASSIUM 3.2 mmol/L (3.5-5.1); TOTAL BILIRUBIN 0.6 mg/dL (0.0-1.0)
--- NOTE | 2020-10-18 07:19 | NUR ---
opening note received SBAR from night Rn, patient in bed, respirations even, non labored, o2 nasal canula, 2L, bed in low and locked position call light within reach, ivf's running as ordered, g tube feeding running as ordered, farley draining by gravity
[2020-10-18 08:00] VITALS: BP_SYST 131
--- NOTE | 2020-10-18 08:38 | NUR ---
paged Paged Dr. Causey regarding patients potassium 3.2
[2020-10-18] MEDS: FERROUS SULFATE 300 MG/5 ML UDC GT SCH ×2 (09:16→20:42)
[2020-10-18] MEDS: LevETIRAcetam 500 MG/5 ML UDC ORAL LIQUID GT SCH ×2 (09:17→20:42)
[2020-10-18] MEDS: PANTOPRAZOLE SODIUM 40 MG/VIAL (PROTONIX) IVP SCH ×2 (09:17→20:42)
[2020-10-18] MEDS: amLODIPine BESYLATE 5 MG TABLET GT SCH ×2 (09:17→20:43)
[2020-10-18] MEDS: APIXABAN 2.5 MG TABLET GT SCH ×2 (09:18→20:46)
--- NOTE | 2020-10-18 09:53 | NUR ---
paged Paged Dr. Causey regarding patients potassium 3.2
--- NOTE | 2020-10-18 10:00 | NUR ---
nurse note patient in bed, respirations even, non labored, bed in low and locked position call light within reach, bed alarm on. repositioned patient
--- NOTE | 2020-10-18 10:10 | NUR ---
informed Dr. Causey of patients Potassium level 3.2 and that patient is having frequent episodes of diarrhea, new orders received
[2020-10-18] MEDS ORDERED: POTASSIUM CHLORIDE 20 MEQ/PKT PACKET GT ONE (10:15)
--- NOTE | 2020-10-18 12:00 | NUR ---
nurse note 0 residual, flushed gtube with 100ml, flushed freely reattached to gube feeding,
[2020-10-18] MEDS: AZITHROMYCIN 500 MG in NS 250 ML IV SCH (12:03)
[2020-10-18] MEDS: DEXAMETHASONE SOD PHOSPHATE 10 MG/ML VIAL IVP SCH (12:04)
[2020-10-18 12:33] VITALS: BP_SYST 120
[2020-10-18] MEDS: KCL 20 mEq in D5/0.45NS 1000mL 1,000 ML IV SCH (12:43)
--- NOTE | 2020-10-18 13:26 | NUR ---
nurse note patient incontinent of bowel, provided terry care, changed linens, repositioned patient, no signs of distress noted collected cdiff specimen, taken to lab
--- NOTE | 2020-10-18 13:27 | NUR ---
rounds dr Causey bedside examining patient
--- NOTE | 2020-10-18 15:23 | NUR ---
nurse note repositioned patient, bed in low and locked position call light within reach, bed alarm on. provided oral care
--- NOTE | 2020-10-18 16:58 | NUR ---
Dietitian Recommendations * Recommend: Jevity 1.2 @ 60ml/hr (goal rate), Banatrol BID, Free Water Flush: 200ml Q8H via GT Provides: 1728 kcals, 80g protein, 1762ml fluids daily Meets: 92% lower end of estimated calorie needs and 107% lower end of estimated protein needs. LP, RD Please refer to Nutrition Assessment for details. Addendum: 10/18/20 at 1659 by Brandon LIRA Amended: Links added.
--- NOTE | 2020-10-18 17:24 | NUR ---
nurse note patient incontinent of bowel, provided terry care, changed linens, repositioned patient. collected specimen for cdiff and delivered to lab Addendum: 10/18/20 at 1727 by Nuvia Morales RN did not send specimen to lab,
[2020-10-18 18:17] VITALS: BP_SYST 138
--- NOTE | 2020-10-18 19:07 | NUR ---
closing note Provided SBAR to night RN, Patient in bed, respirations even, non labored, bed in low and locked position, call light within reach, bed alarm on. Chavarria draining by gravity, ivf's running as ordered, gtube feeding running as ordered. Endorsed care to night RN
--- NOTE | 2020-10-18 19:45 | NUR ---
ROUNDS PATIENT RESTING COMFORTABLY I BED, NOT IN DISTRESS, VITALS STABLE. ASSESSMENT DONE AND DOCUMENTED. SEE FLOWSHEET. NEEDS ATTENDED TO. SAFETY MEASURES IN PLACED. CALL LIGHT PLACED WITHIN REACH.
[2020-10-18] MEDS: MILK OF MAGNESIA 30 ML UDC GT SCH (20:42)
[2020-10-19 00:11] VITALS: BP_SYST 163
--- NOTE | 2020-10-19 00:12 | NUR ---
PATIENT RESTING: Patient resting quietly. No acute distress noted. Vital signs within normal range.
[2020-10-19] MEDS: ALBUTEROL MDI INHALATION 8 GM INH INH SCH ×4 (01:22→19:31)
[2020-10-19] MEDS: KCL 20 mEq in D5/0.45NS 1000mL 1,000 ML IV SCH ×2 (02:36→17:41)
--- NOTE | 2020-10-19 07:30 | NUR ---
OPENING NOTES: RECEIVED REPORT FROM MANAGER INSPECTION NURSE. PATIENT IS ASLEEP LAYING DOWN IN BED. TOLERATED OXYGEN ON 2L VIA NASAL CANNULA WITH NO DISTRESS OR SHORTNESS OF BREATH. IV LINE PATENT AND INTACT WITH NO INFILTRATION NOTED. HERNANDEZ CATHETER IN PLACE AND DRAINING BY GRAVITY. ON TUBE FEEDING JEVITY 1.2 AT 60ML/HR WITH 5 ML RESIDUAL NOTED AND TOLERATED IT WELL. SAFETY, FALL, SEIZURE, AND ASPIRATION PRECAUTIONS ARE IN PLACE. BED LOCKED IN LOWEST POSITION AND CALL LIGHT IN REACH. WILL CONTINUE TO MONITOR PATIENT FOR ANY CHANGES.
[2020-10-19 08:00] VITALS: BP_SYST 133
[2020-10-19] MEDS: PANTOPRAZOLE SODIUM 40 MG/VIAL (PROTONIX) IVP SCH ×2 (09:21→22:05)
[2020-10-19] MEDS: FERROUS SULFATE 300 MG/5 ML UDC GT SCH ×2 (09:21→22:04)
[2020-10-19] MEDS: LevETIRAcetam 500 MG/5 ML UDC ORAL LIQUID GT SCH ×2 (09:21→22:06)
[2020-10-19] MEDS: APIXABAN 2.5 MG TABLET GT SCH ×2 (09:24→22:08)
[2020-10-19] MEDS: amLODIPine BESYLATE 5 MG TABLET GT SCH ×2 (09:24→22:06)
--- NOTE | 2020-10-19 10:00 | NUR ---
PATIENT BACK TO HIS ROOM FROM RADIOLOGY. Addendum: 10/19/20 at 1038 by Kel Cuevas RN WRONG NOTES
--- NOTE | 2020-10-19 10:05 | NUR ---
ID DOCTOR (DR. Galindo) CALLED WITH ORDER TO DC COVID ISOLATION DUE TO PCR NEGATIVE.
[2020-10-19] MEDS: DEXAMETHASONE SOD PHOSPHATE 10 MG/ML VIAL IVP SCH (10:35)
[2020-10-19] MEDS: AZITHROMYCIN 500 MG in NS 250 ML IV SCH (10:36)
[2020-10-19 12:36] VITALS: BP_SYST 132
[2020-10-19] MEDS ORDERED: POTASSIUM CHLORIDE 20 MEQ/PKT PACKET GT ONE (14:00)
[2020-10-19 16:25] VITALS: BP_SYST 120
--- NOTE | 2020-10-19 16:30 | NUR ---
PATIENT TRANSFERRED FROM 133B TO 130B.
--- NOTE | 2020-10-19 18:40 | NUR ---
CLOSING NOTES: PATIENT IS ASLEEP LAYING DOWN IN BED. TOLERATED OXYGEN ON 2L VIA NASAL CANNULA WITH NO DISTRESS OR SHORTNESS OF BREATH. IV LINE PATENT AND INTACT WITH NO INFILTRATION NOTED. HERNANDEZ CATHETER IN PLACE AND DRAINING BY GRAVITY. ON TUBE FEEDING JEVITY 1.2 AT 60ML/HR WITH 5 ML RESIDUAL NOTED AND TOLERATED IT WELL. SAFETY, FALL, SEIZURE, AND ASPIRATION PRECAUTIONS REMAINED IN PLACE. BED LOCKED IN LOWEST POSITION AND CALL LIGHT IN REACH. WILL ENDORSE PATIENT CARE TO ONCOMING SKIN SPECIALIST NURSE.
--- NOTE | 2020-10-19 19:30 | NUR ---
Opening note Received patient resting in bed, eyes open, no distress, nonlabored breathing on room 2L nc. IV is SL to right hand and IVF infusing via IV to LFA, Catheter drainage bag to gravity. Bed is locked in lowest position, side rails up 3x, call light w/in reach and bed alarm on. Placed seizure pads on top rails. Updated board
[2020-10-19 20:00] VITALS: BP_SYST 138
[2020-10-19] MEDS: MILK OF MAGNESIA 30 ML UDC GT SCH (22:04)
--- NOTE | 2020-10-19 22:10 | NUR ---
Meds scheduled meds given via G-tube, no residual noted. Patient had loose dyer colored stool, no odor. He was provided with bed bath, CHG bath, pericare, repositioned.
[2020-10-20] VITALS (7 sets, daily range): BP systolic 129–151
[2020-10-20] MEDS: ALBUTEROL MDI INHALATION 8 GM INH INH SCH ×4 (03:17→19:46)
--- NOTE | 2020-10-20 05:30 | NUR ---
Free water flush provided free water flush. had BM, provided pericare
[2020-10-20 06:37] LABS: BASOPHILS % (AUTO) 0.2 % (0.0-2.0); HEMATOCRIT 39.8 % (36-54); HEMOGLOBIN 13.3 g/dL (14.0-18.0); LYMPHOCYTES # (AUTO) 1.6 K/uL (1.0-5.5); LYMPHOCYTES % (AUTO) 21.6 % (20.5-51.5); MEAN CORPUSCULAR HEMOGLOBIN 27 pg (27-31); MEAN CORPUSCULAR HGB CONC 33 % (32-36); MEAN CORPUSCULAR VOLUME 82 fL (79.0-98.0); MONOCYTES # (AUTO) 0.4 K/uL (0.0-1.0); MONOCYTES % (AUTO) 5.2 % (1.7-9.3); NEUTROPHILS # (AUTO) 5.5 K/uL (1.8-7.7); PLATELET COUNT (AUTO) 230 K/uL (130-430); RED BLOOD CELL COUNT(AUTO) 4.87 MIL/uL (4.2-6.2); RED CELL DISTRIBUTION WIDTH 13.5 % (9.0-15.0); WHITE BLOOD COUNT (AUTO) 7.5 K/uL (4.8-10.8)
--- NOTE | 2020-10-20 06:40 | NUR ---
feeding bottle Hung new feeding bottle and running as ordered,
[2020-10-20 06:54] LABS: CREATININE 0.73 mg/dL (0.55-1.30); POTASSIUM 3.9 mmol/L (3.5-5.1)
--- NOTE | 2020-10-20 07:00 | NUR ---
closing note Patient resting in bed, eyes open, no distress, nonlabored breathing on room air. IVF infusing via IV to LFA, Catheter drainage bag to gravity. Safety, aspiration, seizure precautions in place
--- NOTE | 2020-10-20 08:00 | NUR ---
OPENING NOTES AWAKE IN BED, UNABLE TO ANSWER ORIENTATION QUESTIONS. NO SIGN OF PAIN. O2 SAT AT THIS TIME IS AT 90%. HOOKED BACK TO 2 LITERS OF OXYGEN VIA NASAL CANNULA. NO SHORTNESS OF BREATH. IV FLUIDS INFUSING WELL. TOLERATING ONGOING G-TUBE FEEDING; 10 ML RESIDUAL. HERNANDEZ CATHETER IN PLACE, DRAINING YELLOWISH URINE. FALL AND SAFETY CHECKS DONE. CALL LIGHT WITHIN REACH BUT PATIENT UNABLE TO DEMONSTRATE PROPER CALL LIGHT USE. WILL MONITOR.
[2020-10-20] MEDS: KCL 20 mEq in D5/0.45NS 1000mL 1,000 ML IV SCH ×2 (08:49→21:02)
[2020-10-20] MEDS: LevETIRAcetam 500 MG/5 ML UDC ORAL LIQUID GT SCH ×2 (08:50→21:04)
[2020-10-20] MEDS: PANTOPRAZOLE SODIUM 40 MG/VIAL (PROTONIX) IVP SCH ×2 (08:50→21:00)
[2020-10-20] MEDS: FERROUS SULFATE 300 MG/5 ML UDC GT SCH ×2 (08:50→21:00)
[2020-10-20] MEDS: amLODIPine BESYLATE 5 MG TABLET GT SCH ×2 (08:51→21:01)
[2020-10-20] MEDS: APIXABAN 2.5 MG TABLET GT SCH ×2 (08:52→21:02)
--- NOTE | 2020-10-20 09:45 | NUR ---
ROUNDS 02 SAT AT 98%. OXYGEN REMOVED. FALL, SAFETY, SEIZURE AND ASPIRATION PRECAUTIONS IN PLACE.
[2020-10-20] MEDS: AZITHROMYCIN 500 MG in NS 250 ML IV SCH (11:22)
[2020-10-20] MEDS: DEXAMETHASONE SOD PHOSPHATE 10 MG/ML VIAL IVP SCH (11:23)
--- NOTE | 2020-10-20 12:27 | NUR ---
ROUNDS INCONTINENT OF URINE AND BOWEL. CLEANED AND REPOSITIONED. FALL, SAFETY, SEIZURE AND ASPIRATION PRECAUTIONS IN PLACE.
--- NOTE | 2020-10-20 18:53 | NUR ---
CLOSING NOTES AWAKE IN BED. NO SIGN OF PAIN. NO SHORTNESS OF BREATH ON ROOM AIR. IV FLUIDS INFUSING WELL. TOLERATED G-TUBE FEEDING. HERNANDEZ CATHETER IN PLACE. ALL NEEDS MET. FALL AND SAFETY CHECKS DONE. WILL ENDORSE TO NIGHT NURSE.
--- NOTE | 2020-10-20 19:30 | NUR ---
OPENING NOTE Received report from bruna WALLACE. Pt is lying in bed. Breathing is even and unlabored. No s/s of respiratory distress. IV on left forearm 20 G and right hand 24 G intact. No signs of infiltration noted. Pt tolerating tube feeding, no residual noted. Chavarria catheter intact, draining by gravity. Padded side rails up, bed alarm is on in lowest position. Safety, fall, aspiration, and seizures precautions are in place. Will continue to monitor.
[2020-10-20] MEDS: MILK OF MAGNESIA 30 ML UDC GT SCH (21:00)
[2020-10-21 01:00] VITALS: BP_SYST 139
[2020-10-21] MEDS: ALBUTEROL MDI INHALATION 8 GM INH INH SCH ×4 (01:14→13:14)
--- NOTE | 2020-10-21 06:52 | NUR ---
CLOSING NOTE Pt resting in bed. Breathing is even and unlabored. Chest rise and fall symmetrical. IV on left forearm 20 G and right hand 24 G intact. No signs of infiltration noted. Pt tolerating tube feeding, no residual noted. Chavarria catheter intact, draining by gravity. Padded side rails up, bed alarm is on in lowest position. Safety, fall, aspiration, and seizures precautions are in place. All needs are met throughout shift. Will continue to monitor until endorsed to day shift RN.
--- NOTE | 2020-10-21 08:00 | NUR ---
OPENING NOTES AWAKE IN BED, UNABLE TO ANSWER ORIENTATION QUESTIONS. NO SIGN OF PAIN. NO SHORTNESS OF BREATH ON ROOM AIR. IV FLUIDS INFUSING WELL. TOLERATING ONGOING G-TUBE FEEDING WITH 10ML RESIDUAL. HERNANDEZ CATHETER IN PLACE DRAINING YELLOWISH URINE. REPOSITIONED. FALL AND SAFETY CHECKS DONE. CALL LIGHT WITHIN REACH BUT PATIENT UNABLE TO DEMONSTRATE PROPER CALL LIGHT USE. WILL MONITOR.
[2020-10-21 08:24] VITALS: BP_SYST 143
[2020-10-21] MEDS: LevETIRAcetam 500 MG/5 ML UDC ORAL LIQUID GT SCH ×2 (08:42→20:16)
[2020-10-21] MEDS: PANTOPRAZOLE SODIUM 40 MG/VIAL (PROTONIX) IVP SCH ×2 (08:42→20:16)
[2020-10-21] MEDS: FERROUS SULFATE 300 MG/5 ML UDC GT SCH ×2 (08:42→20:16)
[2020-10-21] MEDS: amLODIPine BESYLATE 5 MG TABLET GT SCH ×2 (08:43→20:19)
[2020-10-21] MEDS: APIXABAN 2.5 MG TABLET GT SCH ×2 (08:43→20:20)
[2020-10-21] MEDS: KCL 20 mEq in D5/0.45NS 1000mL 1,000 ML IV SCH ×2 (08:44→20:20)
[2020-10-21] MEDS: AZITHROMYCIN 500 MG in NS 250 ML IV SCH (11:06)
[2020-10-21] MEDS: DEXAMETHASONE SOD PHOSPHATE 10 MG/ML VIAL IVP SCH (11:06)
[2020-10-21 12:15] VITALS: BP_SYST 141
--- NOTE | 2020-10-21 13:30 | NUR ---
G-TUBE CARE DONE
[2020-10-21 16:20] VITALS: BP_SYST 134
--- NOTE | 2020-10-21 17:08 | NUR ---
Nutrition F/U Admitting Diagnosis Aspiration Pneumonia Reviewed Pertinent Medical/Surgical Hx Medical Record Other Medical History Comment: HTN, traumatic brain injury, seizure disorder, encephalopathy per MD notes. SARS-CoV-2 Ag (Rapid) Positive 10/17 SARS-CoV-2 PCR Negative 10/17 Subjective Information Per MD note: pt presented to ER w/ intractable N/V, SOB, and hypoxemia. Pt was seen bedside by internet sales consultant and RD. Wt of 157.9# was taken at time of visit using bed scale. Jevity 1.2 infusing at 60ml/hr with 880ml infused. record label intern attempted to call pt's RN but line was busy. Current EN: Jevity 1.2 @ 60ml/hr (goal rate), Banatrol BID, Free Water via GT Flush: 200ml Q8H via GT Provides: 1728 kcals, 80g protein, 1762ml fluids daily Meets: 92% lower end of estimated calorie needs and 107% upper end of estimated protein needs. Patient/Significant Other Unable To Verbalize Education Provided Not Indicated Pertinent Medications Milk of magnesia, Eliquis, Norvasc, Dulcolax tab, Protonix, Decadron, Deppra, Ferrous Sulfate Pertinent Labs BG 136H Height: 5'10'' Weight: 160#/72 Body Mass Index: 22.96 kg/m2 %IBW: 96% IBW: 166#/75.4kg Recent Weight Change: No Weight Status: Appropriate Gastrointestinal Symptoms Diarrhea (resolved) Last BM Oct 21, 2020 Difficulty With: Swallowing Usual Diet At Home Jevity 1.2 via G-Tube per EMR review Skin Integrity Comment: Juan 14 -- no edema/wounds per EMR review Estimated Energy Expenditure (kcals/day) 9714-9072 kcals/day (25-30 kcals/kg IBW for maintenance) Estimated Protein Required (g/day) 60-75 g/day (0.8-1 g/kg IBW for maintenance) Estimated Fluid Required (l/day) 1.8-2.3 L/day (1ml/kcal for maintenance) Problem/Etiology/Signs/Symptoms Increased nutrient needs r/t metabolic demands a/e/b estimated protein and calorie needs for COVID-19. *no longer applicable Altered nutrition-related labs related to steroid therapy as evidenced by elevated BG. *new Expected Outcomes/Goals Monitor EN tolerance and intake w/ goal of pt meeting more than 75% of estimated nutritional needs, labs trending WNL, normal GI function, skin integrity/wt maintenance. Dietitian Recommendations * Recommend: Continue Jevity 1.2 @ 60ml/hr (goal rate), Free Water Flush: 200ml Q8H via GT Provides: 1728 kcals, 80g protein, 1762ml fluids daily Meets: 92% lower end of estimated calorie needs and 107% upper end of estimated protein needs. * Recommend: D/C Banatrol BID, diarrhea resolved. Follow Up High Risk: F/U in 2-3 days
--- NOTE | 2020-10-21 19:30 | NUR ---
OPENING NOTE Received report from bruna WALLACE. Pt is lying in bed. Breathing is even and unlabored. No s/s of respiratory distress. IV on left forearm 20 G and right hand 24 G is intact and patent. Pt tolerating tube feeding with no residual noted. Chavarria catheter is intact, draining by gravity. Padded side rails are up, bed alarm is on with bed in lowest position. Safety, fall, aspiration, and seizures precautions are in place. Will continue to monitor
[2020-10-21] MEDS: MILK OF MAGNESIA 30 ML UDC GT SCH (19:49)
[2020-10-21 20:00] VITALS: BP_SYST 117
[2020-10-22 00:20] VITALS: BP_SYST 140
[2020-10-22] MEDS: ALBUTEROL MDI INHALATION 8 GM INH INH SCH ×4 (03:58→13:38)
[2020-10-22 06:23] LABS: CALCIUM 8.4 mg/dL (8.4-11.0); CREATININE 0.71 mg/dL (0.55-1.30)
[2020-10-22 06:33] LABS: BASOPHILS % (AUTO) 0.1 % (0.0-2.0); HEMOGLOBIN 12.6 g/dL (14.0-18.0); LYMPHOCYTES % (AUTO) 27.4 % (20.5-51.5); MEAN CORPUSCULAR HEMOGLOBIN 27 pg (27-31); MEAN CORPUSCULAR HGB CONC 33 % (32-36); MEAN CORPUSCULAR VOLUME 82 fL (79.0-98.0); MONOCYTES # (AUTO) 0.6 K/uL (0.0-1.0); MONOCYTES % (AUTO) 7.8 % (1.7-9.3); NEUTROPHILS # (AUTO) 4.8 K/uL (1.8-7.7); NEUTROPHILS % (AUTO) 64.7 % (40.0-70.0); PLATELET COUNT (AUTO) 252 K/uL (130-430); RED BLOOD CELL COUNT(AUTO) 4.66 MIL/uL (4.2-6.2); RED CELL DISTRIBUTION WIDTH 13.7 % (9.0-15.0); WHITE BLOOD COUNT (AUTO) 7.4 K/uL (4.8-10.8)
--- NOTE | 2020-10-22 06:46 | NUR ---
CLOSING NOTE Pt resting in bed. Breathing is even and unlabored with no s/s of respiratory distress. Pt tolerating tube feeding. Chavarria catheter intact, draining by gravity. Padded side rails up, bed alarm is on in lowest position. Safety, fall, aspiration, and seizures precautions are in place. All needs are met throughout shift. Will continue to monitor until endorsed to day shift RN.
--- NOTE | 2020-10-22 07:15 | NUR ---
OPENING NOTE RECEIVED SBAR FROM NIGHT RN, Pt resting in bed. Breathing is even and unlabored with no s/s of respiratory distress. Pt tolerating tube feeding. Chavarria catheter intact, draining by gravity. Padded side rails up, bed alarm is on in lowest position. Safety, fall, aspiration, and seizures precautions are in place.
[2020-10-22 08:00] VITALS: BP_SYST 130
[2020-10-22] MEDS: FERROUS SULFATE 300 MG/5 ML UDC GT SCH (09:10)
[2020-10-22] MEDS: PANTOPRAZOLE SODIUM 40 MG/VIAL (PROTONIX) IVP SCH (09:10)
[2020-10-22] MEDS: APIXABAN 2.5 MG TABLET GT SCH (09:11)
[2020-10-22] MEDS: amLODIPine BESYLATE 5 MG TABLET GT SCH (09:12)
[2020-10-22] MEDS: LevETIRAcetam 500 MG/5 ML UDC ORAL LIQUID GT SCH (09:12)
[2020-10-22] MEDS: KCL 20 mEq in D5/0.45NS 1000mL 1,000 ML IV SCH (09:14)
--- NOTE | 2020-10-22 09:16 | NUR ---
critical lab paged dr Bacon regarding critical troponin 1.089 Addendum: 10/22/20 at 0918 by Nuvia Morales RN disregard note entered on wrong patient
[2020-10-22] MEDS: DEXAMETHASONE SOD PHOSPHATE 10 MG/ML VIAL IVP SCH (11:02)
[2020-10-22] MEDS: AZITHROMYCIN 500 MG in NS 250 ML IV SCH (11:02)
[2020-10-22 14:13] VITALS: BP_SYST 140
[2020-10-22 15:25] VITALS: BP_SYST 128
--- NOTE | 2020-10-22 15:37 | NUR ---
NURSE NOTE REPORT GIVEN TO PIPE PIEDRA
--- NOTE | 2020-10-22 15:41 | NUR ---
ORDERS PER DR WATSON HERNANDEZ
--- NOTE | 2020-10-22 15:50 | NUR ---
HERNANDEZ REMOVED HERNANDEZ, NO DISTRESS NOTED, PATIENT TOLERATED WELL
--- NOTE | 2020-10-22 15:54 | NUR ---
Patient accepted at [facility] [id number] for report [phone]-[id number] is on will call-discharge disposition is 03
[2020-10-22 16:00] VITALS: BP_SYST 132
--- NOTE | 2020-10-22 17:11 | NUR ---
PT TRANSFERRED Report given to Holden Mcmanus.. Transfer packet with Transfer Orders and Medication Reconciliation form given to EMT with report. Exitcare provided. [facility] ID band removed, replaced with ID band with pt's name and . IV catheter removed, intact and dressing applied, no active bleeding. All belongings sent with patient. Patient left floor via gurney escorted by EMT in no distress.
== END 2020-10-22 17:20 | DRG 179 ==
LOC: SED 23:43 → STU 10-17 03:22
PROVIDERS: ADMIT Family Medicine; ATTEND Family Medicine
DX: J69.0 Pneumonitis due to inhalation of food and vomit (principal); I10 Essential (primary) hypertension; G40.909 Epilepsy, unspecified, not intractable, without status epilepticus; R09.02 Hypoxemia; S06.9X0A Unspecified intracranial injury without loss of consciousness, initial encounter; X58.XXXA Exposure to other specified factors, initial encounter; Y95 Nosocomial condition; Z87.820 Personal history of traumatic brain injury; Y93.89 Activity, other specified; Y92.89 Other specified places as the place of occurrence of the external cause; Y99.8 Other external cause status
CPT/HCPCS: 36415; 36600; 71045; 80048; 80053; 81000; 82550; 82728; 82803-TC; 83605; 83615; 83880; 84484; 85025; 85379; 85384; 85610-TC; 85730-TC; 86140; 86886; 86900; 86901; 87040-TC; 87081; 87086; 87230-TC; 93005; 94640; 94664; 94760; 96365; 96366; 96368; 96375; 99285; C9113; G0378; J0456; J0692; J0696; J1100; J2543; J3370; J7050; J7060; U0003

== ENCOUNTER 2023-03-27 02:02 | Emergency (ER) | payer OTHER, MEDICAID ==
[~2023-03-27] VITALS: Ht 182.9 cm; Wt 86.2 kg
[~2023-03-27 02:02] MED LIST changes: +APIX2.5T GT; +FER300L GT; -FLEETMO RC; -FOLI-43 GT; -HYDR-4272 GT; -HYDR-4272 PO; -PROP10TA10 GT; -QUET50TA GT; -RIVA10TA GT; -SENN8.6T19 GT; -THIA100T73 GT
[2023-03-27 02:05] VITALS: BP_SYST 145; PULSE 103; RESP 18; TEMP 98; O2SAT 96
[2023-03-27] MEDS ORDERED: GASTROGRAFIN 120 ML ONE (02:17)
[2023-03-27 03:00] VITALS: BP_SYST 148; PULSE 69; RESP 18; O2SAT 98
== END 2023-03-27 03:00 | disposition home or self-care (01) ==
LOC: SED 02:02
DX: K94.23 Gastrostomy malfunction (principal); Z79.899 Other long term (current) drug therapy
CPT/HCPCS: 99284; 43762; 74240; Q9963; 99283